=== PATIENT | male | born 1995 | race Caucasian/White ===

== ENCOUNTER 2017-01-21 10:22 | Emergency (ER) | payer SELFPAY ==
[~2017-01-21] VITALS: Ht 185.4 cm; Wt 72.6 kg
[~2017-01-21 10:22] MED LIST: CEPH500C PO; CLAR-19 PO; D-ME118S33 PO; HYDR1TAB PO; IBUP800T26 PO; LAMO150T3 PO; LISD50CA2 PO; LITH300C PO; METH4TAB PO; NAPR550T PO; PRD20T PO; RISP0.253 PO; SULF1TAB35 PO; TRAM50TA2 PO
--- NOTE | 2017-01-21 10:37 | ED Upper Extremity ---
General Stated Complaint: FINGER INJURY Source: patient Exam Limitations: no limitations History of Present Illness Time seen by provider: 10:35 Initial Comments To ER with left middle finger pain. There is swelling and bruising as well. This is a result of a kickback injury table saw about one hour prior to arrival. The board that he was pushing across the table saw had a knot in it which the blade caught throwing the board backwards and this hyperextended his finger. Onset: just prior to arrival Severity: moderate Pain/Injury Location: left 3rd finger Modifying Factors: Worse With Movement Allergies and Home Medications Allergies Coded Allergies: No Known Drug Allergies (Unverified , 11/25/15) Home Medications Sulfamethoxazole/Trimethoprim 1 Each Tablet, 1 EACH PO BID, #14 Ref 0 Prescribed by: FELICIA NUNEZ on 04/15/16 1724 Tramadol HCl 50 Mg Tablet, 50 MG PO Q4H PRN for PAIN, #14 Ref 0 Prescribed by: FELICIA NUNEZ on 04/15/16 1724 Constitutional: see HPI EENTM: see HPI Respiratory: no symptoms reported Cardiovascular: no symptoms reported Genitourinary: no symptoms reported Musculoskeletal: see HPI Skin: no symptoms reported Psychiatric/Neurological: No Symptoms Reported Past Hdptdqp-Pvzoem-Vstlpq Hx Patient Social History Former Smoker/When Quit: December 30, 2011 Recent Foreign Travel: No Contact w/Someone Who Travel: No Recent Hopitalizations: No Immunizations Up To Date Tetanus Booster (TDap): Less than 5yrs Date of Influenza Vaccine: Sep 25, 2015 Seasonal Allergies Seasonal Allergies: No Surgeries HX Surgeries: No Respiratory Hx Respiratory Disorders: No Cardiovascular Hx Cardiac Disorders: No Neurological Hx Neurological Disorders: No Reproductive System Hx Reproductive Disorders: No Sexually Transmitted Disease: No Genitourinary Hx Genitourinary Disorders: No Gastrointestinal Hx Gastrointestinal Disorders: No Musculoskeletal Hx Musculoskeletal Disorders: No Endocrine Hx Endocrine Disorders: No HEENT HX ENT Disorders: No Cancer Hx Cancer: No Psychosocial Hx Psychiatric Problems: Yes Behavioral Health Disorders: Anxiety, Violent Behavior, Depression Integumentary HX Skin/Integumentary Disorder: No Blood Transfusions Hx Blood Disorders: No Family Medical History Significant Family History: No Pertinent Family Hx Physical Exam Vital Signs Vital Sign - Last 12Hours 01/21/17 10:35 Temp 97.2 Pulse 106 Resp 18 B/P (MAP) 114/52 Pulse Ox 98 Capillary Refill : General Appearance: WD/WN, no apparent distress HEENT: PERRL/EOMI, normal ENT inspection Neck: non-tender, full range of motion Respiratory: no respiratory distress, no accessory muscle use Gastrointestinal: normal bowel sounds, non tender, soft Shoulder: normal inspection, non-tender Elbow/Forearm: normal inspection, non-tender, Left Wrist: Yes normal inspection, Yes non-tender Hand: Left, limited ROM (swelling and bruising and limited range of motion to the left middle finger) Neurologic/Psychiatric: alert, normal mood/affect, oriented x 3 Skin: normal color, warm/dry Progress/Results/Core Measures Results/Orders My Orders Orders - BLUE BAXTER APRN Finger(S) (01/21/17 10:35) Vital Signs/I&O Vital Sign - Last 12Hours 01/21/17 10:35 Temp 97.2 Pulse 106 Resp 18 B/P (MAP) 114/52 Pulse Ox 98 Departure Impression Impression: Primary Impression: Finger fracture Disposition: HOME, SELF-CARE Condition: Stable Departure-Patient Inst. Decision time for Depature: 10:51 Referrals: ROMÁN WARD DO (PCP/Family) Primary Care Physician COLTON SHINE MD,PORTILLO ALICEA,CHERYL ARRINGTON,RAVI BRONSON,KARLA GOLDSMITH,SENTHIL Keen MD Patient Instructions: Finger Fracture (DC) Add. Discharge Instructions: 1. Wear the splint at all times for the next 3 weeks. No bending the finger for the next 3 weeks. Follow-up with one of the orthopedic surgeons Scripts Hydrocodone/Acetaminophen ([place] 5-325 Tablet) 1 Each Tablet 1 EACH PO Q4H Y for PAIN-MODERATE, #20 TAB Prov: BLUE BAXTER APRN 01/21/17 Work/School Note: Work Release Form Date Seen in the Emergency Department: January 21, 2017 Return to Work: January 22, 2017 Other Restrictions Listed Below: No use of left middle finger for one month BLUE BAXTER APRN January 21, 2017 10:37
[2017-01-21] MEDS ORDERED: HYDR-757 PO (10:52)
[2017-01-21 10:58] VITALS: BP 114/52
--- NOTE | 2017-01-21 11:37 | Diagnostic Imaging Report ---
Three views of the left fingers. INDICATION: Third digit swelling and bruising. FINDINGS: There is a nondisplaced fracture along the ventral aspect of the base of the middle phalanx in the left middle finger. There is a possible extension into the articular surface without displacement or disruption of the articular surface, however. The joints demonstrate no subluxation or dislocation. IMPRESSION: Nondisplaced intra-articular fracture through the ventral aspect of the base of the middle phalanx of the left middle finger. Dictated by: Dictated on workstation # [id number]
== END 2017-01-21 10:58 | disposition home or self-care (01) ==
LOC: EDUNIT# 10:22 → ER 10:26
DX: S62.663A Nondisplaced fracture of distal phalanx of left middle finger, initial encounter for closed fracture (principal); W22.8XXA Striking against or struck by other objects, initial encounter; Y99.8 Other external cause status
CPT/HCPCS: 73140; 99282

== ENCOUNTER 2017-11-23 08:20 | Emergency (ER) | payer BC, OTHER ==
[~2017-11-23] VITALS: Ht 185.4 cm; Wt 74.8 kg
[~2017-11-23 08:20] MED LIST changes: +HYDR-757 PO
--- OUTSIDE RECORDS SUMMARY | 2017-11-23 08:43 | XMS REPORT | Clinical Summary ---
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 Name Role Phone PP Unavailable Allergies Not on File Current Medications Not on file Active Problems Not on file Social History Tobacco Use Types Packs/Day Years Used Date Never Assessed Sex Assigned at Date Recorded Not on file Plan of Treatment Health Maintenance Due Date Last Done Comments Varicella Vaccines (1 of 2007 2 - 2 Dose Adolescent Series) DTaP,Tdap,and Td Vaccines 2013 (1 - Tdap) Influenza Vaccine (Season 04/25/2018 Ended) HPV Vaccines Aged Out No longer eligible based on patient's age to complete this topic MenB Vaccine (Bexsero) Aged Out No longer eligible based on patient's age to complete this topic Results Not on filefrom Last 3 Months
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
--- NOTE | 2017-11-23 08:57 | Diagnostic Imaging Report ---
INDICATION: Chest tightness and wheezing. PA and lateral views of the chest are obtained with comparison made to study of 10/01/2015. FINDINGS: Heart size and pulmonary vascularity are within normal limits, and the lungs are clear, bilaterally. IMPRESSION: Unremarkable chest. Dictated by: Dictated on workstation # [id number]
[2017-11-23 09:03] LABS: BASOPHILS % (AUTO) 0 % (0-10); EOSINOPHILS # (AUTO) 0.1 10^3/uL (0.0-0.3); EOSINOPHILS % (AUTO) 1 % (0-10); HEMATOCRIT 41 % (40-54); HEMOGLOBIN 14.5 G/DL (13.3-17.7); LYMPHOCYTES # (AUTO) 1.8 X 10^3 (1.0-4.0); LYMPHOCYTES % (AUTO) 30 % (12-44); MEAN CORPUSCULAR HEMOGLOBIN 35 PG (25-34); MEAN CORPUSCULAR HGB CONC 36 G/DL (32-36); MEAN CORPUSCULAR VOLUME 98 FL (80-99); MEAN PLATELET VOLUME 11.3 FL (7.4-10.4); MONOCYTES # (AUTO) 0.5 X 10^3 (0.0-1.0); MONOCYTES % (AUTO) 9 % (0-12); NEUTROPHILS # (AUTO) 3.6 X 10^3 (1.8-7.8); NEUTROPHILS % (AUTO) 60 % (42-75); PLATELET COUNT 148 10^3/uL (130-400); RED BLOOD COUNT 4.19 10^6/uL (4.35-5.85); RED CELL DISTRIBUTION WIDTH 11.2 % (10.0-14.5)
--- NOTE | 2017-11-23 09:15 | ED Chest Pain ---
General Chief Complaint: Chest Pain Stated Complaint: CHEST PAIN Nursing Triage Note: ARRIVED VIA AMB TO ROOM. COMPLAINS OF RIGHT SIDED CHEST PAIN THAT IS GOING UP HIS THROAT. Nursing Sepsis Screen: No Definite Risk Source: patient Exam Limitations: no limitations History of Present Illness Date Seen by Provider: Nov 23, 2017 Time Seen by Provider: 08:33 Initial Comments This 22-year-old young man presents to the emergency room with 2 days of right upper chest pain. Pain is worse with inspiration and any exertion increases his respiratory rate. It is also worse with bending over. 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 He has not taken any medication for the pain. He denies tobacco use or alcohol. He does occasionally smoke marijuana. Pain is described as a dull aching at rest and sharp with strenuous exertion. Vital signs are within normal limits. He denies any lower extremity symptoms. Patient feels fatigued and short of breath with exertion. Allergies and Home Medications Allergies Coded Allergies: No Known Drug Allergies (Unverified , 11/25/15) Home Medications No Active Prescriptions or Reported Meds Patient Home Medication List Home Medication List Reviewed: Yes Review of Systems Constitutional: no symptoms reported EENTM: No Symptoms Reported Respiratory: See HPI Cardiovascular: See HPI Gastrointestinal: No Symptoms Reported Genitourinary: No Symptoms Reported Musculoskeletal: no symptoms reported Skin: no symptoms reported Psychiatric/Neurological: No Symptoms Reported Endocrine: No Symptoms Reported Past Kmaenjv-Mzvvhx-Qpjted Hx Patient Social History Alcohol Use: Occasionally Uses Recreational Drug Use: Yes Drug of Choice: marijuana Smoking Status: Never a Smoker Former Smoker, Quit: Nov 02, 2014 Recent Foreign Travel: No Contact w/Someone Who Travel: No Recent Infectious Disease Expo: No Recent Hopitalizations: No Immunizations Up To Date Tetanus Booster (TDap): Less than 5yrs Date of Influenza Vaccine: Sep 25, 2015 Seasonal Allergies Seasonal Allergies: No Surgeries History of Surgeries: No Respiratory History of Respiratory Disorde: No Cardiovascular History of Cardiac Disorders: No Neurological History of Neurological Disord: No Reproductive System Hx Reproductive Disorders: No Sexually Transmitted Disease: No Gastrointestinal History of Gastrointestinal Di: Yes Gastrointestinal Disorders: Gastroesophageal Reflux Musculoskeletal History of Musculoskeletal Dis: No Endocrine History of Endocrine Disorders: No HEENT History of HEENT Disorders: No Cancer History of Cancer: No Psychosocial History of Psychiatric Problem: Yes Behavioral Health Disorders: Anxiety, Violent Behavior, Depression Integumentary History of Skin or Integumenta: No Blood Transfusions History of Blood Disorders: No Family Medical History Significant Family History: No Pertinent Family Hx Physical Exam Vital Signs Vital Signs - First Documented 11/23/17 08:23 Temp 97.6 Pulse 79 Resp 18 B/P (MAP) 120/74 (89) Pulse Ox 98 Capillary Refill : Less Than 3 Seconds General Appearance: No Apparent Distress, WD/WN HEENT: PERRL/EOMI, Normal ENT Inspection Neck: Normal Inspection Respiratory: Chest Non Tender, Lungs Clear, Normal Breath Sounds, No Accessory Muscle Use, No Respiratory Distress Cardiovascular: Regular Rate, Rhythm, No Edema, No Murmur Extremity: Normal Capillary Refill, Normal Inspection, Non Tender, No Calf Tenderness, No Pedal Edema, Other (negative Alicia) Neurologic/Psychiatric: Alert, Oriented x3, No Motor/Sensory Deficits, Normal Mood/Affect, bar host II-XII Norm as Tested Skin: Normal Color, Warm/Dry Progress/Results/Core Measures Results/Orders Lab Results Laboratory Tests Test 11/23/17 08:56 Range/Units White Blood Count 6.0 4.3-11.0 10^3/uL Red Blood Count 4.19 L 4.35-5.85 10^6/uL Hemoglobin 14.5 13.3-17.7 G/DL Hematocrit 41 40-54 % Mean Corpuscular Volume 98 80-99 FL Mean Corpuscular Hemoglobin 35 H 25-34 PG Mean Corpuscular Hemoglobin Concent 36 32-36 G/DL Red Cell Distribution Width 11.2 10.0-14.5 % Platelet Count 148 130-400 10^3/uL Mean Platelet Volume 11.3 H 7.4-10.4 FL Neutrophils (%) (Auto) 60 42-75 % Lymphocytes (%) (Auto) 30 12-44 % Monocytes (%) (Auto) 9 0-12 % Eosinophils (%) (Auto) 1 0-10 % Basophils (%) (Auto) 0 0-10 % Neutrophils # (Auto) 3.6 1.8-7.8 X 10^3 Lymphocytes # (Auto) 1.8 1.0-4.0 X 10^3 Monocytes # (Auto) 0.5 0.0-1.0 X 10^3 Eosinophils # (Auto) 0.1 0.0-0.3 10^3/uL Basophils # (Auto) 0.0 0.0-0.1 10^3/uL Erythrocyte Sedimentation Rate 4 0-15 MM/HR D-Dimer < 0.27 0.00-0.49 UG/ML Sodium Level 139 135-145 MMOL/L Potassium Level 4.2 3.6-5.0 MMOL/L Chloride Level 104 98-107 MMOL/L Carbon Dioxide Level 25 21-32 MMOL/L Anion Gap 10 5-14 MMOL/L Blood Urea Nitrogen 16 7-18 MG/DL Creatinine 0.84 0.60-1.30 MG/DL Estimat Glomerular Filtration Rate > 60 BUN/Creatinine Ratio 19 Glucose Level 102 70-105 MG/DL Calcium Level 9.4 8.5-10.1 MG/DL Troponin I < 0.30 <0.30 NG/ML C-Reactive Protein High Sensitivity 0.17 0.00-0.50 MG/DL My Orders Orders - CEDRIC FOX MD Chest Pa/Lat (2 View) (11/23/17 08:41) Ekg Tracing (11/23/17 08:41) Basic Metabolic Panel (11/23/17 08:51) Cbc With Automated Diff (11/23/17 08:51) Hs C Reactive Protein (11/23/17 08:51) Fibrin Degradation Products (11/23/17 08:51) Troponin I (11/23/17 08:51) Erythrocyte Sedimentation Rate (11/23/17 08:51) Saline Lock/Iv-Start (11/23/17 08:51) Ketorolac Injection (Toradol Injection) (11/23/17 09:45) Vital Signs/I&O Vital Sign - Last 12Hours 11/23/17 08:23 Temp 97.6 Pulse 79 Resp 18 B/P (MAP) 120/74 (89) Pulse Ox 98 Blood Pressure Mean: 89 Progress Note : Progress Note Workup was unremarkable. Patient was given Toradol by IV route before dismissal. ECG Initial ECG Impression Date: Nov 23, 2017 Initial ECG Impression Time: 08:40 Initial ECG Rate: 65 Initial ECG Rhythm: Normal Sinus Initial ECG Intervals: Normal Initial ECG Impression: Normal Comment Normal sinus rhythm with subtle diffuse ST elevation, likely normal for age secondary to early repolarization. No abnormal intervals or axis deviation. Diagnostic Imaging Diagonstic Imaging: Xray Plain Films/CT/US/NM/MRI: chest Comments Chest x-ray viewed by me and report reviewed. See report below: NAME: CARMEN CLAIRE MED REC#: [id number] PT STATUS: REG ER : 1995 PHYSICIAN: CEDRIC FOX MD ADMIT DATE: 11/23/17/ER Draft Date of Exam:11/23/17 CHEST PA/LAT (2 VIEW) INDICATION: Chest tightness and wheezing. PA and lateral views of the chest are obtained with comparison made to study of 10/01/2015. FINDINGS: Heart size and pulmonary vascularity are within normal limits, and the lungs are clear, bilaterally. IMPRESSION: Unremarkable chest. Dictated on workstation # [id number] Dict: 11/23/17 0854 Trans: 11/23/17 0857 [id number] Interpreted by: CARLO THOMAS MD Departure Impression Impression: Primary Impression: Atypical chest pain Additional Impression: Dyspnea Qualified Codes: R06.00 - Dyspnea, unspecified Disposition: HOME, SELF-CARE Condition: Improved Departure-Patient Inst. Decision time for Depature: 09:40 Referrals: ROMÁN WARD DO (PCP/Family) Primary Care Physician Patient Instructions: Chest Pain That Is Not Caused by the Heart (DC) Add. Discharge Instructions: You may take ibuprofen up to 600 mg every 6 hours as needed for pain. Add Tylenol (acetaminophen) up to 1000 mg every 6 hours as needed for additional pain relief. Follow-up with your primary care provider on Friday if pain persists. Return to the emergency room if you have worsening symptoms. All discharge instructions reviewed with patient and/or family. Voiced understanding. Scripts No Active Prescriptions or Reported Meds CEDRIC FOX MD Nov 23, 2017 09:14
[2017-11-23 09:21] LABS: BUN/CREATININE RATIO 19; CALCIUM 9.4 MG/DL (8.5-10.1); CARBON DIOXIDE 25 MMOL/L (21-32); CHLORIDE 104 MMOL/L (98-107); CREATININE SERUM 0.84 MG/DL (0.60-1.30); GFR ESTIMATED > 60; GLUCOSE 102 MG/DL (70-105); POTASSIUM 4.2 MMOL/L (3.6-5.0); SODIUM 139 MMOL/L (135-145)
[2017-11-23 09:22] LABS: ERYTHROCYTE SEDIMENTATION RATE 4 MM/HR (0-15)
[2017-11-23] MEDS ORDERED: KETOROLAC 30 MG/ML VIAL IVP ONE (09:45)
[2017-11-23 09:53] VITALS: BP 108/63
== END 2017-11-23 09:53 | disposition home or self-care (01) ==
LOC: EDUNIT# 08:20 → ER 08:22
DX: R07.89 Other chest pain (principal); R06.00 Dyspnea, unspecified; K21.9 Gastro-esophageal reflux disease without esophagitis; F41.9 Anxiety disorder, unspecified; F32.9 Major depressive disorder, single episode, unspecified; F12.10 Cannabis abuse, uncomplicated; Z87.891 Personal history of nicotine dependence
CPT/HCPCS: 36415; 71046; 80048; 84484; 85025; 85379; 85652; 86141; 93005; 96374

== ENCOUNTER 2018-06-10 22:31 | Emergency (ER) | payer BC ==
[~2018-06-10] VITALS: Ht 185.4 cm; Wt 77.1 kg
[~2018-06-10 22:31] MED LIST changes: +HYDR-4226 PO; -HYDR-757 PO
[2018-06-10] MEDS ORDERED: RX-TRIMETH/SULFA. 160-800 MG (BACTRIM DS) TAB PPK#2 PO STA (23:36)
[2018-06-10] MEDS ORDERED: RX-NAPROXEN (NAPROSYN) 250 MG TAB PPK#4 PO STA (23:36)
[2018-06-10] MEDS ORDERED: MUPI1OIN6 TP (23:40)
[2018-06-10] MEDS ORDERED: NAPR-915 PO (23:40)
[2018-06-10] MEDS ORDERED: SULF1TAB35 PO (23:40)
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
[2018-06-11 00:05] VITALS: BP 108/71
== END 2018-06-11 00:08 | disposition home or self-care (01) ==
LOC: EDUNIT# 22:31 → ER 22:32
DX: L03.116 Cellulitis of left lower limb (principal); K21.9 Gastro-esophageal reflux disease without esophagitis; F41.9 Anxiety disorder, unspecified; F32.9 Major depressive disorder, single episode, unspecified; F12.10 Cannabis abuse, uncomplicated; F17.210 Nicotine dependence, cigarettes, uncomplicated

== ENCOUNTER → 2018-06-14 | Outpatient (CLI) | payer BC ==
[~2018-06-14] MED LIST changes: +MUPI1OIN6 TP; +NAPR-915 PO
== END ==
LOC: LABNPT 17:18
PROVIDERS: ATTEND Nurse Practitioner Family
DX: L02.416 Cutaneous abscess of left lower limb (principal)
CPT/HCPCS: 87070; 87077; 87186; 87205

== ENCOUNTER 2018-07-10 08:18 | Emergency (ER) | payer BC, OTHER ==
[~2018-07-10] VITALS: Ht 180.3 cm; Wt 77.1 kg
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
[2018-07-10] MEDS ORDERED: HYDR-4226 PO (11:10)
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
[2018-07-10] MEDS ORDERED: HYDROcodone/APAP 5 MG/325 MG (LORTAB) TAB ONE (11:32)
[2018-07-10 11:34] VITALS: BP 136/34
[2018-07-10] MEDS ORDERED: HYDROcodone/APAP 5 MG/325 MG (LORTAB) TAB PO ONE (11:45)
== END 2018-07-10 11:34 | disposition home or self-care (01) ==
LOC: EDUNIT# 08:18 → ER 08:20
DX: S02.2XXA Fracture of nasal bones, initial encounter for closed fracture (principal); S00.83XA Contusion of other part of head, initial encounter; K21.9 Gastro-esophageal reflux disease without esophagitis; F41.9 Anxiety disorder, unspecified; F32.9 Major depressive disorder, single episode, unspecified; R40.2142 Coma scale, eyes open, spontaneous, at arrival to emergency department; R40.2252 Coma scale, best verbal response, oriented, at arrival to emergency department; R40.2362 Coma scale, best motor response, obeys commands, at arrival to emergency department; Y04.8XXA Assault by other bodily force, initial encounter; Y92.59 Other trade areas as the place of occurrence of the external cause; Y99.0 Civilian activity done for income or pay
CPT/HCPCS: 70450; 70486; 72125

== ENCOUNTER 2019-05-16 13:37 | Emergency (ER) | payer MEDICAID, OTHER ==
[~2019-05-16] VITALS: Ht 185 cm; Wt 77.3 kg
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
[2019-05-16] MEDS ORDERED: IBUPROFEN 800 MG (MOTRIN) TAB PO STA (14:29)
[2019-05-16 14:45] VITALS: BP 106/72
== END 2019-05-16 14:43 | disposition home or self-care (01) ==
LOC: EDUNIT# 13:37 → ER 13:38
DX: S63.641A Sprain of metacarpophalangeal joint of right thumb, initial encounter (principal); S60.221A Contusion of right hand, initial encounter; F41.9 Anxiety disorder, unspecified; F32.9 Major depressive disorder, single episode, unspecified; F91.8 Other conduct disorders; K21.9 Gastro-esophageal reflux disease without esophagitis; Z87.891 Personal history of nicotine dependence; Y04.0XXA Assault by unarmed brawl or fight, initial encounter
CPT/HCPCS: 73130

== ENCOUNTER 2020-01-11 03:26 | Emergency (ER) | payer MEDICAID ==
[~2020-01-11] VITALS: Ht 185 cm; Wt 72.4 kg
[~2020-01-11 03:26] MED LIST changes: +TRM50T PO
[2020-01-11 03:35] VITALS: BP 124/87
[2020-01-11] MEDS ORDERED: predniSONE 20 MG TAB PO ONE (03:45)
--- NOTE | 2020-01-11 03:46 | ED Integumentary General ---
General Chief Complaint: Skin/Wound Problems Stated Complaint: POISON DENIA Source: patient Exam Limitations: no limitations History of Present Illness Date Seen by Provider: January 11, 2020 Time Seen by Provider: 03:35 Initial Comments Here with report of poison denia to his arms, neck and torso. Onset 2 days ago after lying in the grass working on his boat. Has linear lesions consistent with poison denia. Denies other concern. Timing/Duration: getting worse, other (2 days ago) Severity: moderate Location: torso, extremities Modifying Factors: improves with antihistamine Associated Symptoms: blisters, change in skin texture, edema, rash Allergies and Home Medications Allergies Coded Allergies: No Known Drug Allergies (Unverified , 11/25/15) Home Medications No Active Prescriptions or Reported Meds Patient Home Medication List Home Medication List Reviewed: Yes Review of Systems Review of Systems Constitutional: no symptoms reported EENTM: no symptoms reported Respiratory: no symptoms reported Cardiovascular: no symptoms reported Skin: see HPI, change in color, lesions, pruritus, rash Past Hdbcknu-Kfeswb-Izkunz Hx Past Med/Social Hx: Reviewed Nursing Past Med/Soc Hx Patient Social History Alcohol Use: Occasionally Uses Recreational Drug Use: Yes Drug of Choice: CANNIBUS Smoking Status: Current Everyday Smoker Type Used: Cigarettes Former Smoker, Quit: Nov 02, 2014 Recent Foreign Travel: No Contact w/Someone Who Travel: No Recent Hopitalizations: No Physical Abuse: No Sexual Abuse: No Mistreated: No Fear: No Immunizations Up To Date Tetanus Booster (TDap): Less than 5yrs Date of Influenza Vaccine: Sep 25, 2015 Seasonal Allergies Seasonal Allergies: No Past Medical History Surgeries: No Respiratory: No Cardiac: No Neurological: No Reproductive Disorders: No Sexually Transmitted Disease: No Genitourinary: No Gastrointestinal: Yes Gastroesophageal Reflux Musculoskeletal: No Endocrine: No HEENT: No Cancer: No Psychosocial: Yes Anxiety, Violent Behavior, Depression Integumentary: No Blood Disorders: No Family Medical History Reviewed Nursing Family Hx No Pertinent Family Hx Physical Exam Vital Signs Capillary Refill : General Appearance: WD/WN, no apparent distress Cardiovascular: regular rate, rhythm, no murmur Respiratory: lungs clear, normal breath sounds Neurologic/Psychiatric: alert, oriented x 3 Skin: warm/dry Skin Problem Location: upper extremities, torso Skin Problem Character: erythema, lesion, linear, vesicular Progress/Results/Core Measures Results/Orders My Orders Orders - KARUK,MOISE D MD Prednisone Tablet (Deltasone Tablet) (01/11/20 03:45) Progress Progress Note : Progress Note Seen and evaluated. Multiple areas of linear lesions to the trunk, bilateral upper extremities and right-sided neck. All consistent with poison denia contact dermatitis. Prednisone 40 mg by mouth. Discharged home with return precautions. Patient verbalize understanding instructions and agreement with plan. Departure Impression Primary Impression: Contact dermatitis due to poison denia Disposition: HOME, SELF-CARE Condition: Stable Departure-Patient Inst. Decision time for Depature: 03:44 Referrals: ROMÁN WARD DO (PCP/Family) Primary Care Physician Patient Instructions: Poison Denia Add. Discharge Instructions: All discharge instructions reviewed with patient and/or family. Voiced understanding. Take medications as directed. Follow-up with your doctor as needed. Return for worse pain, fever, foul-smelling drainage from lesions or other concerns as needed. Read discharge instructions related to poison denia care. Scripts Prednisone (Prednisone) 20 Mg Tab 40 MG PO DAILY, #12 TAB 0 Refills Prov: MOISE MEDINA MD 01/11/20 MOISE MEDINA MD January 11, 2020 03:46
[2020-01-11] MEDS ORDERED: PRD20T PO (03:47)
== END 2020-01-11 03:48 | disposition home or self-care (01) ==
LOC: EDUNIT# 03:26 → ER 03:30
DX: L23.7 Allergic contact dermatitis due to plants, except food (principal); F17.210 Nicotine dependence, cigarettes, uncomplicated
CPT/HCPCS: 99283

== ENCOUNTER 2020-04-06 02:44 | Emergency (ER) | payer MEDICAID ==
[~2020-04-06] VITALS: Ht 185 cm; Wt 72.5 kg
[2020-04-06] MEDS ORDERED: LACTATED RINGERS 1,000 ML IV ONE ×3 (03:08→05:31)
[2020-04-06] MEDS ORDERED: ONDANSETRON 4 MG/2 ML (SDV) Z0FRAN IVP ONE (03:15)
[2020-04-06 03:25] LABS: BASOPHILS % (AUTO) 0 % (0-10); EOSINOPHILS # (AUTO) 0.1 10^3/uL (0.0-0.3); EOSINOPHILS % (AUTO) 1 % (0-10); HEMATOCRIT 44 % (40-54); LYMPHOCYTES # (AUTO) 2.3 X 10^3 (1.0-4.0); LYMPHOCYTES % (AUTO) 25 % (12-44); MEAN CORPUSCULAR HEMOGLOBIN 34 PG (25-34); MEAN CORPUSCULAR HGB CONC 36 G/DL (32-36); MEAN CORPUSCULAR VOLUME 94 FL (80-99); MEAN PLATELET VOLUME 12.4 FL (7.4-10.4); MONOCYTES % (AUTO) 11 % (0-12); NEUTROPHILS # (AUTO) 5.7 X 10^3 (1.8-7.8); NEUTROPHILS % (AUTO) 63 % (42-75); PLATELET COUNT 158 10^3/uL (130-400); RED CELL DISTRIBUTION WIDTH 11.2 % (10.0-14.5); WHITE BLOOD COUNT 9.1 10^3/uL (4.3-11.0)
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
[2020-04-06 03:49] LABS: ALANINE AMINOTRANSFERASE 15 U/L (0-55); ALBUMIN 4.9 GM/DL (3.2-4.5); ALKALINE PHOSPHATASE 94 U/L (40-136); BILIRUBIN,TOTAL 1.6 MG/DL (0.1-1.0); BUN/CREATININE RATIO 15; CALCIUM 9.8 MG/DL (8.5-10.1); CARBON DIOXIDE 22 MMOL/L (21-32); CHLORIDE 104 MMOL/L (98-107); CREATININE SERUM 1.46 MG/DL (0.60-1.30); GFR ESTIMATED 58; GLUCOSE 110 MG/DL (70-105); MAGNESIUM 2.3 MG/DL (1.6-2.4); SODIUM 140 MMOL/L (135-145); TOTAL PROTEIN 8.2 GM/DL (6.4-8.2)
[2020-04-06] MEDS ORDERED: KCL 10 MEQ TAB (MICRO K) PO ONE (04:30)
--- NOTE | 2020-04-06 05:04 | NUR ---
patient concerned with his speech while at work, states trouble making words. Dr notifed of patient concerns.
--- NOTE | 2020-04-06 06:35 | NUR ---
patient yelling in room. Asked patient to keep it down. patient states "you are on facetime" Doctor and this RN instructed patient that facetime was not allowed. patient continued to yell. [place] [employer] contacted.
[2020-04-06 06:45] VITALS: BP 154/69
--- NOTE | 2020-04-06 06:45 | NUR ---
Patient yelling at RN because blood backed up into IV. RN talked with patient explaining reasoning. IV line flushed. RN spoke with patient about need for urine and junior. Patient getting upset again. RN showed patient junior, patient kept repeating that we were not helping him. [place] [employer] here. Spoke with patient about illegal to facetime in a hospital. This nurse instructed patient that he could refuse a junior catheter. RN explained the benifits of a junior, patient refused junior, patient upset with staff stating we are not fixing him. RN explained again pt refusing junior is hendering care. Patient refused to sign refusal of junior form. Edson Thayer [place] [employer] officer wittnessed refusal.
== END 2020-04-06 06:50 ==
LOC: EDUNIT# 02:44 → ER 02:48
DX: T67.5XXA Heat exhaustion, unspecified, initial encounter (principal); E86.0 Dehydration; E87.6 Hypokalemia; F19.90 Other psychoactive substance use, unspecified, uncomplicated; F91.8 Other conduct disorders; Z79.52 Long term (current) use of systemic steroids; Z87.891 Personal history of nicotine dependence; X30.XXXA Exposure to excessive natural heat, initial encounter
CPT/HCPCS: 80053; 83735; 85025; 99284; G0480; 36415; 80320

== ENCOUNTER 2020-07-07 18:44 | Emergency (ER) | payer MEDICAID ==
[~2020-07-07] VITALS: Ht 187.9 cm; Wt 70.3 kg
[2020-07-07] MEDS ORDERED: KETOROLAC 30 MG/ML VIAL IVP STA (18:54)
[2020-07-07] MEDS ORDERED: LACTATED RINGERS 1,000 ML IV ONE (18:54)
[2020-07-07 19:03] LABS: BILIRUBIN,URINE 2+ (NEGATIVE); CLARITY,URINE TURBID; COLOR,URINE BROWN; GLUCOSE, URINE (UA) NEGATIVE (NEGATIVE); KETONES,URINE TRACE (NEGATIVE); LEUKOCYTE ESTERASE ,URINE NEGATIVE (NEGATIVE); NITRITE,URINE POSITIVE (NEGATIVE); PH,URINE 6.5 (5-9); PROTEIN,URINE 3+ (NEGATIVE)
[2020-07-07 19:06] LABS: BASOPHILS % (AUTO) 0 % (0-10); EOSINOPHILS % (AUTO) 1 % (0-10); HEMATOCRIT 44 % (40-54); HEMOGLOBIN 14.5 g/dL (13.3-17.7); LYMPHOCYTES # (AUTO) 1.3 10^3/uL (1.0-4.0); LYMPHOCYTES % (AUTO) 27 % (12-44); MEAN CORPUSCULAR HEMOGLOBIN 33 pg (25-34); MEAN CORPUSCULAR HGB CONC 33 g/dL (32-36); MEAN CORPUSCULAR VOLUME 101 fL (80-99); MEAN PLATELET VOLUME 11.4 fL (9.0-12.2); MONOCYTES # (AUTO) 0.6 10^3/uL (0.0-1.0); MONOCYTES % (AUTO) 12 % (0-12); NEUTROPHILS # (AUTO) 2.9 10^3/uL (1.8-7.8); NEUTROPHILS % (AUTO) 60 % (42-75); PLATELET COUNT 157 10^3/uL (130-400); WHITE BLOOD COUNT 4.9 10^3/uL (4.3-11.0)
[2020-07-07 19:14] LABS: AMORPHOUS SEDIMENT,UR FEW AMOR URATES /LPF; BACTERIA,URINE FEW /HPF; RBC,URINE TNTC /HPF; SQUAMOUS EPITHELIAL CELL,UR RARE /HPF
[2020-07-07 19:16] LABS: AMPHETAMINE SCREEN, URINE NEGATIVE (NEGATIVE); BARBITURATE SCREEN URINE NEGATIVE (NEGATIVE); BENZODIAZEPINES SCREEN URINE NEGATIVE (NEGATIVE); CANNABINOID SCREEN, URINE POSITIVE (NEGATIVE); COCAINE SCREEN URINE NEGATIVE (NEGATIVE); METHADONE STAT NEGATIVE (NEGATIVE); METHAMPHETAMINE SCREEN URINE S NEGATIVE (NEGATIVE); OPIATE SCREEN URINE NEGATIVE (NEGATIVE); OXYCODONE STAT NEGATIVE (NEGATIVE); PROPOXYPHENE STAT NEGATIVE (NEGATIVE); TRICYCLIC ANTIDEPRESSANTS SCRE NEGATIVE (NEGATIVE)
[2020-07-07 19:22] LABS: PROTHROMBIN TIME PATIENT 13.9 SEC (12.2-14.7)
[2020-07-07 19:25] LABS: ALANINE AMINOTRANSFERASE 29 U/L (0-55); ALBUMIN 4.7 GM/DL (3.2-4.5); ALKALINE PHOSPHATASE 75 U/L (40-136); BILIRUBIN,TOTAL 1.6 MG/DL (0.1-1.0); BUN/CREATININE RATIO 12; CALCIUM 9.4 MG/DL (8.5-10.1); CARBON DIOXIDE 26 MMOL/L (21-32); CHLORIDE 103 MMOL/L (98-107); GFR ESTIMATED > 60; GLUCOSE 102 MG/DL (70-105); MAGNESIUM 2.1 MG/DL (1.6-2.4); SODIUM 140 MMOL/L (135-145); TOTAL PROTEIN 7.6 GM/DL (6.4-8.2)
--- NOTE | 2020-07-07 19:29 | Diagnostic Imaging Report ---
PROCEDURE: CT urinary tract, rule out kidney stone. TECHNIQUE: Multiple contiguous axial images were obtained through the abdomen and pelvis without the use of intravenous contrast. Auto Exposure Controls were utilized during the CT exam to meet ALARA standards for radiation dose reduction. INDICATION: Right flank pain. COMPARISON: 01/18/2012. FINDINGS: The heart is unremarkable. The included lung bases are clear. A 0.5 cm calculus is seen in the right UPJ with no significant right-sided hydronephrosis. Bilateral nonobstructing calculi also present. The largest in the superior pole of the right kidney measures 0.2 cm and the largest in the mid left kidney measures 0.3 cm. No significant perinephric fat stranding is seen. The urinary bladder is decompressed. No bladder calculi are visualized. The liver, spleen, pancreas, and adrenal glands have a normal appearance. There is no pathologically enlarged mesenteric or retroperitoneal adenopathy. The bowel loops are nondilated. The appendix is visualized in the right lower quadrant and has a normal appearance. There is no free fluid or free air. The osseous structures are age-appropriate. There is no free air, loculated collection, or adenopathy in the pelvis. IMPRESSION: 1. Calculus in the right UPJ measuring 0.5 cm. No significant hydronephrosis or perinephric fat stranding is seen. 2. Bilateral nonobstructing calculi. Dictated by: Dictated on workstation # [id number]
--- NOTE | 2020-07-07 19:33 | ED Back Pain ---
General Chief Complaint: Back Problems Stated Complaint: BACK PAIN Nursing Triage Note: PT AMB TO RM 6 WITH COMPLAINT OF RIGHT SIDED BACK PAIN THAT STARTED AT 1330. UNKNOWN CAUSE. Nursing Sepsis Screen: No Definite Risk Source of Information: Patient History of Present Illness Date Seen by Provider: Jul 07, 2020 Time Seen by Provider: 18:54 Initial Comments PT ARRIVES VIA POV FROM WORK AT [facility] [employer] C/O RIGHT FLANK PAIN SINCE 1330 TODAY, AND GETTING WORSE, HAD TO LEAVE WORK EARLY NO INJURY OR UNUSUAL ACTIVITY NO RADIATION OF PAIN C/O NAUSEA, NO VOMITING, WITH SEVERE PAIN NO ABDOMINAL PAIN NO DIARRHEA NO FEVER NO PROBLEMS URINATING, BUT NOTED ON ARRIVAL TO ER THAT URINE IS BROWN IN COL OR--HAD NOT BEEN THAT WAY EARLIER TOOL 2 IBUPROFEN AT 1530 AND 2 MORE AT 1730 WITHOUT RELIEF. NOTHING WORSENS OR IMPROVES PAIN NO HISTORY OF SIMILAR NO FEVER OR RECENT ILLNESS SEVERAL PEOPLE AT WORK HAVE HAD COVID, BUT NO ONE IN HIS DEPARTMENT HAS BEEN ILL OR HAD TO BE ON QUARANTINE. Other Comments PCP: NONE Allergies and Home Medications Allergies Coded Allergies: No Known Drug Allergies (Unverified , 11/25/15) Home Medications Hydrocodone/Acetaminophen 1 Each Tablet, 1 EACH PO Q4-6 HOURS PRN for PAIN Prescribed by: FAHAD WHITE on 07/07/201946 Ketorolac Tromethamine 10 Mg Tablet, 10 MG PO Q6H Prescribed by: FAHAD WHITE on 07/07/201946 Nitrofurantoin Monohyd/M-Cryst 100 Mg Capsule, 1 TAB PO BID Prescribed by: FAHAD WHITE on 07/07/201946 Ondansetron 4 Mg Tab.rapdis, 4 MG PO Q4H Prescribed by: FAHAD WHITE on 07/07/201946 Prednisone 20 Mg Tab, 40 MG PO DAILY Prescribed by: MOISE MEDINA on 01/11/20346 Tamsulosin HCl 0.4 Mg Cap, 0.4 MG PO DAILY Prescribed by: FAHAD WHITE on 07/07/201946 Patient Home Medication List Home Medication List Reviewed: Yes Review of Systems Constitutional: no symptoms reported EENTM: no symptoms reported Respiratory: no symptoms reported Cardiovascular: no symptoms reported Gastrointestinal: see HPI; No abdominal pain, No constipation, No diarrhea, No loss of appetite; nausea; No vomiting Genitourinary: see HPI Musculoskeletal: see HPI, back pain Skin: rash (CHRONIC RASH ON TRUNK--TREATED PERIODICALLY WITH ANTIFUNGAL MEDICATIONS, WHICH HELP, THEN IT COMES BACK WHEN HE STOPS USING IT. ) Psychiatric/Neurological: No Symptoms Reported Past Hfwvkdt-Iardfw-Pwbgtu Hx Past Med/Social Hx: Reviewed and Corrections made Patient Social History Alcohol Use: Occasionally Uses Number of Drinks Today: AA Alcohol Beverage of Choice: Beer Recreational Drug Use: Yes (THC DAILY) Drug of Choice: CANNIBUS DAILY Smoking Status: Current Everyday Smoker (<1/2 PPD) Type Used: Cigarettes 2nd Hand Smoke Exposure: Yes Recent Foreign Travel: No Contact w/Someone Who Travel: No Recent Infectious Disease Expo: No Recent Hopitalizations: No Immunizations Up To Date Tetanus Booster (TDap): Less than 5yrs Date of Influenza Vaccine: Sep 25, 2015 Seasonal Allergies Seasonal Allergies: No Past Medical History Surgeries: No Respiratory: No Cardiac: No Neurological: No Reproductive Disorders: No Sexually Transmitted Disease: No HIV/AIDS: No Genitourinary: No Gastrointestinal: Yes Gastroesophageal Reflux Musculoskeletal: No Endocrine: No HEENT: No Cancer: No Psychosocial: Yes Anxiety, Violent Behavior, Depression Integumentary: No Blood Disorders: No Family Medical History No Pertinent Family Hx Physical Exam Vital Signs Vital Signs - First Documented 07/07/20 18:47 Temp 36.4 Pulse 71 Resp 20 B/P (MAP) 120/74 (89) Pulse Ox 98 O2 Delivery Room Air Capillary Refill : Less Than 3 Seconds Height, Weight, BMI Height: 5'11.00" Weight: 170lbs. oz. 77.026353rv; 19.00 BMI Method:Estimated General Appearance: No Apparent Distress, WD/WN, Thin HEENT: PERRL/EOMI Neck: Full Range of Motion, Normal Inspection, Non Tender, Supple Cardiovascular: Regular Rate, Rhythm, No Edema, No JVD, No Murmur, Normal Peripheral Pulses Respiratory: Normal Breath Sounds, No Accessory Muscle Use, No Respiratory Distress Gastrointestinal: Normal Bowel Sounds, No Organomegaly, No Pulsatile Mass, Non Tender, Soft Back: No Vertebral Tenderness, CVA Tenderness (R) Extremity: Normal Inspection Neurologic/Psychiatric: Alert, Oriented x3, No Motor/Sensory Deficits, Normal Mood/Affect, trestleman II-XII Norm as Tested Skin: Normal Color, Warm/Dry, Rash (RASH ON TRUNK CONSISTENT WITH TINEA VERSICOLOR. ), Tattoos/Piercings (MULTIPLE TATTOOS) Progress/Results/Core Measures Results/Orders Lab Results Laboratory Tests Test 07/07/20 18:53 07/07/20 19:00 Range/Units Urine Color BROWN H Urine Clarity TURBID Urine pH 6.5 5-9 Urine Specific [place] >=1.030 1.016-1.022 Urine Protein 3+ H NEGATIVE Urine Glucose (UA) NEGATIVE NEGATIVE Urine Ketones TRACE H NEGATIVE Urine Nitrite POSITIVE H NEGATIVE Urine Bilirubin 2+ H NEGATIVE Urine Urobilinogen 1.0 < = 1.0 MG/DL Urine Leukocyte Esterase NEGATIVE NEGATIVE Urine RBC (Auto) 3+ H NEGATIVE Urine RBC TNTC H /HPF Urine WBC NONE /HPF Urine Squamous Epithelial Cells RARE /HPF Urine Crystals PRESENT H /LPF Urine Amorphous Sediment FEW ORTEGA URATES H /LPF Urine Bacteria FEW H /HPF Urine Casts NONE /LPF Urine Mucus NEGATIVE /LPF Urine Culture Indicated YES Urine Opiates Screen NEGATIVE NEGATIVE Urine Oxycodone Screen NEGATIVE NEGATIVE Urine Methadone Screen NEGATIVE NEGATIVE Urine Propoxyphene Screen NEGATIVE NEGATIVE Urine Barbiturates Screen NEGATIVE NEGATIVE Ur Tricyclic Antidepressants Screen NEGATIVE NEGATIVE Urine Phencyclidine Screen NEGATIVE NEGATIVE Urine Amphetamines Screen NEGATIVE NEGATIVE Urine Methamphetamines Screen NEGATIVE NEGATIVE Urine Benzodiazepines Screen NEGATIVE NEGATIVE Urine Cocaine Screen NEGATIVE NEGATIVE Urine Cannabinoids Screen POSITIVE H NEGATIVE White Blood Count 4.9 4.3-11.0 10^3/uL Red Blood Count 4.34 4.30-5.52 10^6/uL Hemoglobin 14.5 13.3-17.7 g/dL Hematocrit 44 40-54 % Mean Corpuscular Volume 101 H 80-99 fL Mean Corpuscular Hemoglobin 33 25-34 pg Mean Corpuscular Hemoglobin Concent 33 32-36 g/dL Red Cell Distribution Width 11.2 10.0-14.5 % Platelet Count 157 130-400 10^3/uL Mean Platelet Volume 11.4 9.0-12.2 fL Immature Granulocyte % (Auto) 0 % Neutrophils (%) (Auto) 60 42-75 % Lymphocytes (%) (Auto) 27 12-44 % Monocytes (%) (Auto) 12 0-12 % Eosinophils (%) (Auto) 1 0-10 % Basophils (%) (Auto) 0 0-10 % Neutrophils # (Auto) 2.9 1.8-7.8 10^3/uL Lymphocytes # (Auto) 1.3 1.0-4.0 10^3/uL Monocytes # (Auto) 0.6 0.0-1.0 10^3/uL Eosinophils # (Auto) 0.0 0.0-0.3 10^3/uL Basophils # (Auto) 0.0 0.0-0.1 10^3/uL Immature Granulocyte # (Auto) 0.0 0.0-0.1 10^3/uL Prothrombin Time 13.9 12.2-14.7 SEC INR Comment 1.0 0.8-1.4 Activated Partial Thromboplast Time 28 24-35 SEC Sodium Level 140 135-145 MMOL/L Potassium Level 4.0 3.6-5.0 MMOL/L Chloride Level 103 98-107 MMOL/L Carbon Dioxide Level 26 21-32 MMOL/L Anion Gap 11 5-14 MMOL/L Blood Urea Nitrogen 12 7-18 MG/DL Creatinine 1.00 0.60-1.30 MG/DL Estimat Glomerular Filtration Rate > 60 BUN/Creatinine Ratio 12 Glucose Level 102 70-105 MG/DL Calcium Level 9.4 8.5-10.1 MG/DL Corrected Calcium 8.5-10.1 MG/DL Magnesium Level 2.1 1.6-2.4 MG/DL Total Bilirubin 1.6 H 0.1-1.0 MG/DL Aspartate Amino Transf (AST/SGOT) 24 5-34 U/L Alanine Aminotransferase (ALT/SGPT) 29 0-55 U/L Alkaline Phosphatase 75 40-136 U/L Total Protein 7.6 6.4-8.2 GM/DL Albumin 4.7 H 3.2-4.5 GM/DL My Orders Orders - FAHAD WHITE DO Ed Iv/Invasive Line Start (07/07/20 18:54) Ct Abd/Pelvis Wo(Kidney Stone) (07/07/20 18:54) Abdomen/Kub 1view (07/07/20 18:54) Cbc With Automated Diff (07/07/20 18:54) Comprehensive Metabolic Panel (07/07/20 18:54) Drug Screen Stat (Urine) (07/07/20 18:54) Magnesium (07/07/20 18:54) Protime With Inr (07/07/20 18:54) Partial Thromboplastin Time (07/07/20 18:54) Ua Culture If Indicated (07/07/20 18:54) Ketorolac Injection (Toradol Injection) (07/07/20 18:54) Ed Iv/Invasive Line Start (07/07/20 18:54) Lactated Ringers (Lr 1000 Ml Iv Solution (07/07/20 18:54) Urine Culture (07/07/20 18:53) Tamsulosin Capsule (Flomax Capsule) (07/07/20 19:45) Ceftriaxone For Iv Use (Rocephin For I (07/07/20 19:45) Medications Given in ED Current Medications Medications Dose Ordered Sig/Glne Route Start Time Stop Time Status Last Admin Dose Admin Ceftriaxone Sodium 1000 mg/ Sterile Water 10 ml @ 200 mls/hr ONCE ONCE IV 07/07/20 19:45 07/07/20 19:47 DC 07/07/20 19:40 200 MLS/HR Lactated Ringer's 1,000 ml @ 0 mls/hr Q0M ONCE IV 07/07/20 18:54 07/07/20 18:56 DC 07/07/20 19:01 0 MLS/HR Vital Signs/I&O 07/07/20 18:47 Temp 36.4 Pulse 71 Resp 20 B/P (MAP) 120/74 (89) Pulse Ox 98 O2 Delivery Room Air Blood Pressure Mean: 89 Progress Progress Note : Progress Note GIVEN IV FLUIDS AND TORADOL WITH COMPLETE RELIEF OF PAIN UNEVENTFUL ER STAY Diagnostic Imaging Comments CT ABDOMEN/PELVIS--PER RADIOLOGIST REPORT AT 193 IMPRESSION: 1. Calculus in the right UPJ measuring 0.5 cm. No significant hydronephrosis or perinephric fat stranding is seen. 2. Bilateral nonobstructing calculi. KUB--PER RADIOLOGIST REPORT AT 1955 IMPRESSION: 1. Focal calcification in the area of the right renal pelvis, corresponding to the calculus in the right UPJ seen on the prior CT abdomen and pelvis. 2. No evidence of bowel obstruction or large collection of free intraperitoneal air. Reviewed: Reviewed by Me Departure Impression Primary Impression: Right ureteral calculus Additional Impression: UTI (urinary tract infection) Disposition: 01 HOME, SELF-CARE Condition: Improved Departure-Patient Inst. Referrals: CEDRIC ALVARADO MD Patient Instructions: How to Strain Your Urine, Kidney Stones (DC), Urinary Tract Infection, Adult (DC) Add. Discharge Instructions: STRAIN ALL URINE--RETURN ANY STONES TO UROLOGIST OFFICE LOTS OF CLEAR LIQUIDS--DRINK ENOUGH SO YOU ARE URINATING EVERY 2-3 HOURS WHILE AWAKE FOLLOW UP WITH DR. ALVARADO NEXT WEEK, CALL ON FRIDAY TO MAKE AN APPOINTMENT RETURN TO ER IF SYMPTOMS WORSEN, SUCH SEVERE PAIN THAT WILL NOT GO AWAY WITH PAIN MEDICATIONS OR FEVER, ETC. All discharge instructions reviewed with patient and/or family. Voiced understanding. Scripts Ketorolac Tromethamine (Ketorolac Tromethamine) 10 Mg Tablet 10 MG PO Q6H for Pain, #15 TAB Prov: FAHAD WHITE DO 07/07/20 Hydrocodone/Acetaminophen (Hydrocodone-Acetamin 5-325 mg) 1 Each Tablet 1 EACH PO Q4-6 HOURS PRN for PAIN, #20 TAB Prov: FAHAD WHITE DO 07/07/20 Ondansetron (Ondansetron Odt) 4 Mg Tab.rapdis 4 MG PO Q4H for Nausea/Vomiting, #10 TAB Prov: FAHAD WHITE DO 07/07/20 Nitrofurantoin Monohyd/M-Cryst (Macrobid 100 mg Capsule) 100 Mg Capsule 1 TAB PO BID, #20 CAP Prov: FAHAD WHITE DO 07/07/20 Tamsulosin HCl (Flomax) 0.4 Mg Cap 0.4 MG PO DAILY, #10 CAP Prov: FAHAD WHITE DO 07/07/20 FAHAD WHITE DO Jul 07, 2020 19:33
--- NOTE | 2020-07-07 19:35 | Diagnostic Imaging Report ---
REASON FOR EXAM: abdomen pain COMPARISON: CT abdomen and pelvis performed the same date. TECHNIQUE: frontal supine view of the abdomen FINDINGS: The bowel gas pattern is nondistended. No large collection of free intraperitoneal air is seen. Scattered small amounts of gas and fecal material are present in the colon. Focal calcification is seen in the area of the right renal pelvis. The osseous structures are age-appropriate. IMPRESSION: 1. Focal calcification in the area of the right renal pelvis, corresponding to the calculus in the right UPJ seen on the prior CT abdomen and pelvis. 2. No evidence of bowel obstruction or large collection of free intraperitoneal air. Dictated by: Dictated on workstation # [id number]
[2020-07-07] MEDS ORDERED: cefTRIAXone FOR IV USE 1,000 MG in WATER (STERILE) FOR INJECTION 10 ML IV ONE (19:45)
[2020-07-07] MEDS ORDERED: TAMSULOSIN 0.4 MG (FLOMAX) CAP PO SCH (19:45)
[2020-07-07] MEDS ORDERED: KETO10TA PO (19:47)
[2020-07-07] MEDS ORDERED: ONDA4TAB11 PO (19:47)
[2020-07-07] MEDS ORDERED: ACHD5005 PO (19:47)
[2020-07-07] MEDS ORDERED: TMSL.4C PO (19:47)
[2020-07-07] MEDS ORDERED: NITR-65 PO (19:47)
[2020-07-07 19:53] VITALS: BP 114/79
== END 2020-07-07 19:53 | disposition home or self-care (01) ==
LOC: EDUNIT# 18:44 → ER 18:45
DX: N20.1 Calculus of ureter (principal); N39.0 Urinary tract infection, site not specified; F17.210 Nicotine dependence, cigarettes, uncomplicated; Z79.52 Long term (current) use of systemic steroids
CPT/HCPCS: 36415; 74018; 74176; 80053; 80306; 81000; 83735; 85025; 85610; 85730; 87088

== ENCOUNTER → 2020-07-17 | Outpatient (CLI) | payer MEDICAID ==
[~2020-07-17] MED LIST changes: +ACHD5005 PO; +KETO10TA PO; +NITR-65 PO; +ONDA4TAB11 PO; +TMSL.4C PO
--- NOTE | 2020-07-17 15:18 | Diagnostic Imaging Report ---
INDICATION: Follow-up UPJ calculus. COMPARISON: 07/07/2020 FINDINGS: Single supine radiographic view of the abdomen was obtained. Unfortunately, the right renal shadow is obscured by colonic air and stool. There is however suggestion of retained 4 mm calculus. Pelvic phleboliths are again identified. Small bowel loops are nondistended. There is no large collection of free intraperitoneal air. Osseous structures show no acute abnormalities. IMPRESSION: 1. Right renal shadow is heavily obscured by colonic air and stool, but there is suggestion of retained 4 mm calculus. Dictated by: Dictated on workstation # [id number]
== END ==
LOC: RAD 13:35
PROVIDERS: ATTEND Urology
DX: N20.1 Calculus of ureter (principal)
CPT/HCPCS: 74018

== ENCOUNTER 2020-07-24 05:34 | Outpatient (RCR) | payer MEDICAID ==
[~2020-07-24] VITALS: Ht 185.5 cm; Wt 70.5 kg
== END 2020-07-24 10:44 | disposition home or self-care (01) ==
LOC: PREOP 05:34
PROVIDERS: ATTEND Urology
DX: Z01.812 Encounter for preprocedural laboratory examination (principal); N20.2 Calculus of kidney with calculus of ureter; Z20.828 Contact with and (suspected) exposure to other viral communicable diseases
CPT/HCPCS: 87635

== ENCOUNTER 2020-07-26 06:14 | Day surgery (SDC) | payer MEDICAID ==
[~2020-07-26] VITALS: Ht 185 cm; Wt 70.5 kg
[2020-07-26] VITALS (9 sets, daily range): BP systolic 87–109; BP diastolic 47–76
[2020-07-26] MEDS ORDERED: LACTATED RINGERS 1,000 ML IV PRN (06:33)
[2020-07-26] MEDS ORDERED: cefTRIAXone FOR IV USE 1,000 MG in WATER (STERILE) FOR INJECTION 10 ML IV ONE (06:45)
[2020-07-26] MEDS ORDERED: CATHETER FLUSH 10 ML SYR IV PRN (06:45)
[2020-07-26] MEDS ORDERED: KETOROLAC 30 MG/ML VIAL ONE (06:54)
[2020-07-26] MEDS ORDERED: LIDOCAINE PF 2% 5 ML (XYLOCAINE) VIAL ONE (06:54)
[2020-07-26] MEDS ORDERED: FUROSEMIDE 40 MG/4 ML INJ (LASIX) ONE (06:54)
[2020-07-26] MEDS ORDERED: proPOfol 200 MG/20 ML (DIPRIVAN) VIAL IV ONE (06:54)
[2020-07-26] MEDS ORDERED: MIDAZOLAM 2 MG/2 ML (VERSED) VIAL ONE (06:54)
[2020-07-26] MEDS ORDERED: ONDANSETRON 4 MG/2 ML (SDV) Z0FRAN ONE (06:54)
[2020-07-26] MEDS ORDERED: morphine INJ 10 MG/ML 1ML (SYR OR VIAL) ONE (06:54)
--- NOTE | 2020-07-26 07:12 | Diagnostic Imaging Report ---
INDICATION: ESWL A single view of the abdomen shows the bowel gas pattern to be within normal limits. There are calcified phleboliths in the pelvis. No urinary tract stone is evident on today's examination. The questionable 4 mm calculus seen on the right on 07/17/2020 study is not evident on today's examination. IMPRESSION: Normal abdomen. Dictated by: Dictated on workstation # [id number]
--- NOTE | 2020-07-26 07:12 | Progress Note-Pre Operative ---
Pre-Operative Progress Note H&P Reviewed The H&P was reviewed, patient examined and no changes noted. Date Seen by Provider: Jul 26, 2020 Time Seen by Provider: 07:11 Date H&P Reviewed: Jul 26, 2020 Time H&P Reviewed: 07:11 Pre-Operative Diagnosis: RT RENAL STONE CEDRIC ALVARADO MD Jul 26, 2020 07:12
--- NOTE | 2020-07-26 07:43 | Progress Note-Post Operative ---
Post-Operative Progess Note Surgeon (s)/Regional Extension Service Specialist (s) Surgeon CEDRIC ALVARADO MD Regional Extension Service Specialist: NONE Pre-Operative Diagnosis RT RENAL STONE Post-Operative Diagnosis SAME Procedure & Operative Findings Date of Procedure 07/26/20 Procedure Performed/Findings RT ESWL Anesthesia Type GENERAL Estimated Blood Loss Estimated blood loss (mL): NONE Specimens/Packing Specimens Removed NONE Packing: NONE CEDRIC ALVARADO MD Jul 26, 2020 07:43
--- NOTE | 2020-07-26 07:44 | Discharge Inst-Urology ---
Discharge Inst-Urology Reconcile Patient Problems Problems Reviewed?: Yes Final Diagnosis RT RENAL STONE Patient Instructions/Follow Up Plan/Assessment/Instructions Please make appointment to been seen in office in 2 weeks. KUB prior to it KUB on way home Post ESWL instructions Increase oral fluids for 48 hours and then as needed. Diet and Activity as tolerated. If questions or concerns contact your physician Or seek help at emergency department. CEDRIC ALVARADO MD Jul 26, 2020 07:44
[2020-07-26] MEDS ORDERED: PHENYLEPHRINE 100 MCG/ML 10 ML (ANESTHESIA) SYR ONE (07:58)
[2020-07-26] MEDS ORDERED: SEVOFLURANE (ULTANE) 15 ML INHAL SOLN ONE (08:00)
[2020-07-26] MEDS ORDERED: morphine INJ 10 MG/ML 1ML (SYR OR VIAL) IVP ONE (08:15)
[2020-07-26] MEDS ORDERED: MEPERIDINE (DEMEROL) INJ 50 MG/ML IVP ONE (08:15)
[2020-07-26] MEDS ORDERED: ONDANSETRON 4 MG/2 ML (SDV) Z0FRAN IVP PRN (08:15)
[2020-07-26] MEDS ORDERED: TMSL.4C PO (09:54)
[2020-07-26] MEDS ORDERED: TRM50T PO (09:54)
[2020-07-26] MEDS ORDERED: NITR-65 PO (09:54)
--- NOTE | 2020-07-26 10:00 | Anesthesia-General Post-Op ---
General Patient Condition Mental Status/LOC: Same as Preop Cardiovascular: Satisfactory Nausea/Vomiting: Absent Respiratory: Satisfactory Pain: Controlled Complications: Absent Post Op Complications Complications None Follow Up Care/Instructions Patient Instructions None needed. Anesthesia/Patient Condition Patient Condition Patient is doing well, no complaints, stable vital signs, no apparent adverse anesthesia problems. No complications reported per nursing. DENIS KLEIN CRNA Jul 26, 2020 10:00
--- NOTE | 2020-07-26 10:47 | Diagnostic Imaging Report ---
INDICATION: POST ESWL. TECHNIQUE: 2 supine view of the abdomen 10:22 AM CORRELATION STUDY: 07/26/2020 FINDINGS: Gas-filled loops of bowel are present with mild severity fecal retention. There is presence of grouped fragmented calcifications over the right renal silhouette. Likely phlebolith calcifications in the pelvis. No definitive calcifications along the expected course of either ureter. No definitive visualized calcification over left renal silhouette. IMPRESSION: 1. Small group fragmented calcifications over the right renal silhouette. Dictated by: Dictated on workstation # [id number]
--- NOTE | 2020-07-26 15:18 | OPERATIVE REPORT ---
DATE OF SERVICE: 07/26/2020 PREOPERATIVE DIAGNOSIS: Right renal stone. POSTOPERATIVE DIAGNOSIS: Right renal stone. OPERATION PERFORMED: Right ESWL. SURGEON: David Alvarado MD. ANESTHESIA: General. COMPLICATIONS: None. DESCRIPTION OF PROCEDURE: Under satisfactory general anesthesia and the patient in supine position on the ESWL table, the right renal stone was localized. Shocks were delivered at a kV of 6. A total of 2000 shocks completely fragmented the stone that was not visualized anymore. The patient received 40 mg of Lasix and 30 mg of Toradol IV at the end of the procedure. He tolerated the procedure and anesthesia well and was sent to the recovery room in stable condition. Job ID: [id number] DocumentID: [id number] Dictated Date: 07/26/2020 07:57:25 Psychology Associate Date: 07/26/2020 15:18:09 Dictated By: DAVID ALVARADO MD
[2020-07-27] MEDS ORDERED: OXYC1TAB87 PO (13:07)
== END 2020-07-26 10:45 | disposition home or self-care (01) ==
LOC: SDC 06:14
PROVIDERS: ATTEND Urology
DX: N20.0 Calculus of kidney (principal); F32.9 Major depressive disorder, single episode, unspecified; F41.9 Anxiety disorder, unspecified; K21.9 Gastro-esophageal reflux disease without esophagitis; Z79.899 Other long term (current) drug therapy; Z88.5 Allergy status to narcotic agent
CPT/HCPCS: 74018; 87081; 93005

== ENCOUNTER 2020-07-27 10:50 | Emergency (ER) | payer MEDICAID ==
[~2020-07-27] VITALS: Ht 185.4 cm; Wt 72.7 kg
[2020-07-27] MEDS ORDERED: morphine INJ 10 MG/ML 1ML (SYR OR VIAL) IVP STA (11:16)
[2020-07-27] MEDS ORDERED: KETOROLAC 30 MG/ML VIAL ONE (11:19)
[2020-07-27] MEDS ORDERED: KETOROLAC 15 MG/ML VIAL IVP ONE (11:30)
[2020-07-27] MEDS ORDERED: NS IV 1000 ML 1,000 ML IV SCH ×3 (11:30→12:00)
--- NOTE | 2020-07-27 11:37 | NUR ---
PLACED ON 2 L NC AFTER PAIN MEDS SA02 AT 89% 1138 SA02 100% WITH 2 L NC
--- NOTE | 2020-07-27 11:49 | ED General ---
General Chief Complaint: General Problems/Pain Stated Complaint: FLANK PAIN Nursing Triage Note: AMB TO ED PER EMS HAD KIDNEY STONE BLASTED YESTERDAY BY DR ALVARADO TODAY ONSET OF HAVING PAIN MEDS GIVEN BY DR ALVARADO ARE NOT HELPING. SCREAMING AND YELLING ON ADMIT.WANTNG PAIN MEDS. ADMITS TO SMOKING POT LAST NIGHT Nursing Sepsis Screen: No Definite Risk Source of Information: Patient Exam Limitations: No Limitations History of Present Illness Date Seen by Provider: Jul 27, 2020 Time Seen by Provider: 11:49 Initial Comments To ER with right lower/suprapubic pain that radiates into the testicles. He had ESWL for a right sided ureteral stone yesterday. Came in by EMS screaming in pain, Toradol and morphine given. He was sent home yesterday with Ultra for pain control. Timing/Duration: 1-2 Days Severity: Moderate Associated Systoms: Denies Symptoms Allergies and Home Medications Allergies Coded Allergies: fentanyl (Verified Allergy, Unknown, LIPS SWELLED, 07/26/20) Home Medications Nitrofurantoin Monohyd/M-Cryst 100 Mg Capsule, 1 TAB PO BID WITH MEALS Prescribed by: SANTANA ONEAL on 07/26/20 0954 Tamsulosin HCl 0.4 Mg Cap, 0.4 MG PO DAILY Prescribed by: SANTANA ONEAL on 07/26/20 0954 Tramadol HCl 50 Mg Tablet, 50 MG PO Q4H PRN for PAIN-MODERATE (5-7) Prescribed by: SANTANA ONEAL on 07/26/20 0954 Patient Home Medication List Home Medication List Reviewed: Yes Review of Systems Review of Systems Constitutional: see HPI EENTM: see HPI Respiratory: no symptoms reported Cardiovascular: no symptoms reported Genitourinary: no symptoms reported Musculoskeletal: no symptoms reported Skin: no symptoms reported Psychiatric/Neurological: No Symptoms Reported Hematologic/Lymphatic: No Symptoms Reported Immunological/Allergic: no symptoms reported Past Muknitx-Uvshqq-Seqoae Hx Patient Social History Alcohol Use: Occasionally Uses Number of Drinks Today: AA Alcohol Beverage of Choice: Beer Recreational Drug Use: No (SMOKES POT AND DRINKS ETOH) Drug of Choice: CANNIBUS Type Used: Cigarettes Former Smoker, Quit: Nov 02, 2014 2nd Hand Smoke Exposure: Yes Recent Foreign Travel: No Contact w/Someone Who Travel: No Recent Infectious Disease Expo: No Recent Hopitalizations: No Immunizations Up To Date Tetanus Booster (TDap): Less than 5yrs Date of Influenza Vaccine: May 25, 2020 Seasonal Allergies Seasonal Allergies: Yes Past Medical History Surgeries: No Respiratory: No Currently Using CPAP: No Currently Using BIPAP: No Cardiac: No Neurological: No Reproductive Disorders: No Sexually Transmitted Disease: No HIV/AIDS: No Genitourinary: Yes Kidney Stones Gastrointestinal: Yes Gastroesophageal Reflux Musculoskeletal: No Endocrine: No HEENT: No Cancer: No Psychosocial: Yes Anxiety, Violent Behavior, Depression Integumentary: No Blood Disorders: No Family Medical History No Pertinent Family Hx Physical Exam Vital Signs Vital Signs - First Documented 07/27/20 10:50 Temp 35.0 Pulse 85 Resp 18 B/P (MAP) 137/100 (112) O2 Delivery Room Air Capillary Refill : Less Than 3 Seconds Height, Weight, BMI Height: 5'11.00" Weight: 170lbs. oz. 77.855911ml; 21.00 BMI Method:Estimated General Appearance: No Apparent Distress, WD/WN Eyes: Bilateral Eye Normal Inspection, Bilateral Eye PERRL, Bilateral Eye EOMI Neck: Full Range of Motion, Normal Inspection Respiratory: Lungs Clear, Normal Breath Sounds, No Accessory Muscle Use, No Respiratory Distress Cardiovascular: Regular Rate, Rhythm, Normal Peripheral Pulses Gastrointestinal: Normal Bowel Sounds, Non Tender, Soft Neurologic/Psychiatric: Alert, Oriented x3 Skin: Normal Color, Warm/Dry Comments 1200-resting comfortably, rates pain 3 out of 10 after Toradol and morphine. Progress/Results/Core Measures Suspected Sepsis Recent Fever Within 48 Hours: No Infection Criteria Present: None New/Unexplained Altered Menta: No Sepsis Screen: No Definite Risk SIRS Temperature: Pulse: 85 Respiratory Rate: 18 Laboratory Tests 07/27/20 10:58: White Blood Count 7.9 Blood Pressure 137 /100 Mean: 112 Laboratory Tests 07/27/20 10:58: Creatinine 1.01, Platelet Count 154 Results/Orders Lab Results Laboratory Tests Test 07/27/20 10:58 07/27/20 12:49 Range/Units White Blood Count 7.9 4.3-11.0 10^3/uL Red Blood Count 4.17 L 4.30-5.52 10^6/uL Hemoglobin 14.2 13.3-17.7 g/dL Hematocrit 42 40-54 % Mean Corpuscular Volume 100 H 80-99 fL Mean Corpuscular Hemoglobin 34 25-34 pg Mean Corpuscular Hemoglobin Concent 34 32-36 g/dL Red Cell Distribution Width 11.0 10.0-14.5 % Platelet Count 154 130-400 10^3/uL Mean Platelet Volume 12.4 H 9.0-12.2 fL Immature Granulocyte % (Auto) 0 % Neutrophils (%) (Auto) 61 42-75 % Lymphocytes (%) (Auto) 30 12-44 % Monocytes (%) (Auto) 9 0-12 % Eosinophils (%) (Auto) 0 0-10 % Basophils (%) (Auto) 0 0-10 % Neutrophils # (Auto) 4.9 1.8-7.8 10^3/uL Lymphocytes # (Auto) 2.4 1.0-4.0 10^3/uL Monocytes # (Auto) 0.7 0.0-1.0 10^3/uL Eosinophils # (Auto) 0.0 0.0-0.3 10^3/uL Basophils # (Auto) 0.0 0.0-0.1 10^3/uL Immature Granulocyte # (Auto) 0.0 0.0-0.1 10^3/uL Sodium Level 138 135-145 MMOL/L Potassium Level 3.3 L 3.6-5.0 MMOL/L Chloride Level 102 98-107 MMOL/L Carbon Dioxide Level 21 21-32 MMOL/L Anion Gap 15 H 5-14 MMOL/L Blood Urea Nitrogen 19 H 7-18 MG/DL Creatinine 1.01 0.60-1.30 MG/DL Estimat Glomerular Filtration Rate > 60 BUN/Creatinine Ratio 19 Glucose Level 138 H 70-105 MG/DL Calcium Level 9.1 8.5-10.1 MG/DL Urine Color YELLOW Urine Clarity CLEAR Urine pH 6.5 5-9 Urine Specific [place] 1.025 H 1.016-1.022 Urine Protein 2+ H NEGATIVE Urine Glucose (UA) NEGATIVE NEGATIVE Urine Ketones NEGATIVE NEGATIVE Urine Nitrite NEGATIVE NEGATIVE Urine Bilirubin NEGATIVE NEGATIVE Urine Urobilinogen 0.2 < = 1.0 MG/DL Urine Leukocyte Esterase TRACE H NEGATIVE Urine RBC (Auto) 3+ H NEGATIVE Urine RBC 50-100 H /HPF Urine WBC 2-5 /HPF Urine Squamous Epithelial Cells RARE /HPF Urine Crystals NONE /LPF Urine Bacteria NEGATIVE /HPF Urine Casts NONE /LPF Urine Mucus NEGATIVE /LPF Urine Culture Indicated NO My Orders Orders - BLUE BAXTER APRN Ns Iv 1000 Ml (Sodium Chloride 0.9%) (07/27/20 12:00) Oxycodone/Apap 5/325mg Tablet (Percocet (07/27/20 12:00) Ns Iv 1000 Ml (Sodium Chloride 0.9%) (07/27/20 12:00) Cbc With Automated Diff (07/27/20 11:53) Ua Culture If Indicated (07/27/20 11:53) Basic Metabolic Panel (07/27/20 11:53) Medications Given in ED Current Medications Medications Dose Ordered Sig/[place]len Route Start Time Stop Time Status Last Admin Dose Admin Ketorolac Tromethamine 15 mg ONCE ONCE IVP 07/27/20 11:30 07/27/20 11:31 DC 07/27/20 11:24 15 MG Oxycodone/ Acetaminophen 1 tab ONCE ONCE PO 07/27/20 12:00 07/27/20 12:01 DC 07/27/20 12:07 1 TAB Vital Signs/I&O 07/27/20 10:50 Temp 35.0 Pulse 85 Resp 18 B/P (MAP) 137/100 (112) O2 Delivery Room Air Capillary Refill : Less Than 3 Seconds Blood Pressure Mean: 112 Departure Impression Primary Impression: Right ureteral calculus Disposition: HOME, SELF-CARE Condition: Stable Departure-Patient Inst. Decision time for Depature: 12:56 Referrals: NO,LOCAL PHYSICIAN (PCP/Family) Primary Care Physician Patient Instructions: Kidney Stones (DC) Add. Discharge Instructions: Follow-upTake the antibiotics Take the pain medication as directed. Return to ER for any concerns. With Dr. Alvarado All discharge instructions reviewed with patient and/or family. Voiced understanding. BLUE BAXTER APRN Jul 27, 2020 11:49
[2020-07-27 11:58] LABS: BASOPHILS % (AUTO) 0 % (0-10); EOSINOPHILS % (AUTO) 0 % (0-10); HEMATOCRIT 42 % (40-54); HEMOGLOBIN 14.2 g/dL (13.3-17.7); LYMPHOCYTES # (AUTO) 2.4 10^3/uL (1.0-4.0); LYMPHOCYTES % (AUTO) 30 % (12-44); MEAN CORPUSCULAR HEMOGLOBIN 34 pg (25-34); MEAN CORPUSCULAR HGB CONC 34 g/dL (32-36); MEAN CORPUSCULAR VOLUME 100 fL (80-99); MEAN PLATELET VOLUME 12.4 fL (9.0-12.2); MONOCYTES # (AUTO) 0.7 10^3/uL (0.0-1.0); MONOCYTES % (AUTO) 9 % (0-12); NEUTROPHILS # (AUTO) 4.9 10^3/uL (1.8-7.8); NEUTROPHILS % (AUTO) 61 % (42-75); PLATELET COUNT 154 10^3/uL (130-400); WHITE BLOOD COUNT 7.9 10^3/uL (4.3-11.0)
[2020-07-27 12:00] LABS: CHLORIDE 102 MMOL/L (98-107); POTASSIUM 3.3 MMOL/L (3.6-5.0); SODIUM 138 MMOL/L (135-145)
[2020-07-27] MEDS ORDERED: oxyCODONE/APAP 5/325MG (PERCOCET 5) TABLET PO ONE (12:00)
[2020-07-27 12:02] LABS: CALCIUM 9.1 MG/DL (8.5-10.1); GLUCOSE 138 MG/DL (70-105)
[2020-07-27 12:03] LABS: CARBON DIOXIDE 21 MMOL/L (21-32)
[2020-07-27 12:06] LABS: CREATININE SERUM 1.01 MG/DL (0.60-1.30); GFR ESTIMATED > 60
[2020-07-27 12:07] LABS: BUN/CREATININE RATIO 19
[2020-07-27 12:54] LABS: BILIRUBIN,URINE NEGATIVE (NEGATIVE); CLARITY,URINE CLEAR; COLOR,URINE YELLOW; GLUCOSE, URINE (UA) NEGATIVE (NEGATIVE); KETONES,URINE NEGATIVE (NEGATIVE); LEUKOCYTE ESTERASE ,URINE TRACE (NEGATIVE); NITRITE,URINE NEGATIVE (NEGATIVE); PH,URINE 6.5 (5-9); PROTEIN,URINE 2+ (NEGATIVE)
[2020-07-27 13:02] LABS: BACTERIA,URINE NEGATIVE /HPF; RBC,URINE 50-100 /HPF; SQUAMOUS EPITHELIAL CELL,UR RARE /HPF
[2020-07-27] MEDS ORDERED: OXYC1TAB87 PO (13:07)
[2020-07-27 13:17] VITALS: BP 112/53
== END 2020-07-27 13:16 | disposition home or self-care (01) ==
LOC: EDUNIT# 10:50 → ER 10:53
DX: N20.1 Calculus of ureter (principal); Z87.891 Personal history of nicotine dependence; Z88.8 Allergy status to other drugs, medicaments and biological substances
CPT/HCPCS: 36415; 80048; 81000; 85025

== ENCOUNTER → 2020-08-09 | Outpatient (CLI) | payer MEDICAID ==
[~2020-08-09] MED LIST changes: +OXYC1TAB87 PO
--- NOTE | 2020-08-09 16:52 | Diagnostic Imaging Report ---
INDICATION: Renal calculus KUB 2:49 PM There is a moderate amount of stool in the colon. There are some phleboliths in the pelvis. There is a 6 mL calculus projecting over the right renal pelvis and a 1.5 mm calculus projecting over the mid left kidney. IMPRESSION: Bilateral nephrolithiasis. Dictated by: Dictated on workstation # [id number]
== END ==
LOC: RAD 14:15
PROVIDERS: ATTEND Urology
DX: N20.0 Calculus of kidney (principal)
CPT/HCPCS: 74018

== ENCOUNTER 2020-12-17 23:25 | Emergency (ER) | payer MEDICAID ==
[~2020-12-17] VITALS: Ht 185 cm; Wt 79.0 kg
[2020-12-18] MEDS ORDERED: AZITHROMYCIN 250 MG TAB (ZITHROMAX) PO STA (01:13)
--- NOTE | 2020-12-18 01:17 | ED General ---
General Chief Complaint: Cough/Cold/Flu Symptoms Stated Complaint: COUGH,SINUS ISSUES,MUCUS, CHEST PAIN Source of Information: Patient Exam Limitations: No Limitations History of Present Illness Date Seen by Provider: Dec 18, 2020 Time Seen by Provider: 00:00 Initial Comments This 25-year-old young man presents to the emergency room with complaints of flulike symptoms including sinus drainage, mucus production, cough, and right lower chest pain with breathing. He reports his significant other was recently diagnosed with pneumonia. He denies any flu or Covid exposures. He does smoke. He is afebrile. He has had symptoms for about a week. Allergies and Home Medications Allergies Coded Allergies: fentanyl (Verified Allergy, Unknown, LIPS SWELLED, 07/26/20) Home Medications Azithromycin 250 Mg Tablet, 250 MG PO DAILY Prescribed by: CEDRIC HODGSON on 12/18/20 0443 Nitrofurantoin Monohyd/M-Cryst 100 Mg Capsule, 1 TAB PO BID WITH MEALS Prescribed by: SANTANA ONEAL on 07/26/20 0954 Oxycodone HCl/Acetaminophen 1 Each Tablet, 1 TAB PO Q4H Prescribed by: BLUE BAXTER on 07/27/20 1308 Tamsulosin HCl 0.4 Mg Cap, 0.4 MG PO DAILY Prescribed by: SANTANA ONEAL on 07/26/20 0954 Tramadol HCl 50 Mg Tablet, 50 MG PO Q4H PRN for PAIN-MODERATE (5-7) Prescribed by: SANTANA ONEAL on 07/26/20 0954 Patient Home Medication List Home Medication List Reviewed: Yes Review of Systems Review of Systems Constitutional: no symptoms reported EENTM: see HPI Respiratory: see HPI Cardiovascular: no symptoms reported Gastrointestinal: no symptoms reported Genitourinary: no symptoms reported Musculoskeletal: no symptoms reported Skin: no symptoms reported Psychiatric/Neurological: No Symptoms Reported Hematologic/Lymphatic: No Symptoms Reported Immunological/Allergic: no symptoms reported Past Nabgzls-Eoftkb-Baagtg Hx Patient Social History Alcohol Beverage of Choice: Beer Drug of Choice: CANNIBUS Type Used: Cigarettes Former Smoker, Quit: Nov 02, 2014 2nd Hand Smoke Exposure: Yes Recent Hopitalizations: No Immunizations Up To Date Tetanus Booster (TDap): Less than 5yrs Date of Influenza Vaccine: May 25, 2020 Seasonal Allergies Seasonal Allergies: Yes Past Medical History Surgeries: No Respiratory: No Currently Using CPAP: No Currently Using BIPAP: No Cardiac: No Neurological: No Reproductive Disorders: No Sexually Transmitted Disease: No HIV/AIDS: No Genitourinary: Yes Kidney Stones Gastrointestinal: Yes Gastroesophageal Reflux Musculoskeletal: No Endocrine: No HEENT: No Cancer: No Psychosocial: Yes Anxiety, Violent Behavior, Depression Integumentary: No Blood Disorders: No Family Medical History No Pertinent Family Hx Physical Exam Vital Signs Vital Signs - First Documented 12/18/20 01:24 Pulse Ox 98 Capillary Refill : Height, Weight, BMI Height: 5'11.00" Weight: 170lbs. oz. 77.948894ky; 21.00 BMI Method:Estimated General Appearance: No Apparent Distress, WD/WN HEENT: PERRL/EOMI, Normal ENT Inspection, Pharynx Normal Neck: Normal Inspection Respiratory: Lungs Clear, Normal Breath Sounds, No Accessory Muscle Use, No Respiratory Distress, Other (Splinting respirations noted) Cardiovascular: Regular Rate, Rhythm, No Edema, No Murmur Gastrointestinal: Non Tender, Soft Extremity: Normal Inspection, No Pedal Edema Neurologic/Psychiatric: Alert, Oriented x3, No Motor/Sensory Deficits, Normal Mood/Affect Skin: Normal Color, Warm/Dry Progress/Results/Core Measures Suspected Sepsis SIRS Temperature: Pulse: Respiratory Rate: Blood Pressure / Mean: Results/Orders Lab Results Laboratory Tests Test 12/18/20 00:05 Range/Units Coronavirus 2019 ([facility]NA) Not Detected Not Detecte Micro Results Microbiology 12/18/20 Influenza Types A,B Antigen ([facility]) - Final, Complete My Orders Orders - CEDRIC FOX MD Influenza A And B Antigens (12/18/20 00:00) Chest 1 View, Ap/Pa Only (12/18/20 00:00) Covid 19 Inhouse Test (12/18/20 00:00) Azithromycin Tablet (Zithromax Tablet) (12/18/20 01:13) Vital Signs/I&O 12/17/20 12/17/20 12/18/20 23:45 23:45 01:24 Temp 36.9 Pulse 77 87 Resp 18 14 B/P (MAP) 122/73 (89) 114/74 Pulse Ox 98 O2 Delivery Room Air Room Air Room Air Capillary Refill : Progress Note : Progress Note Chest x-ray was obtained. There was questionable subtle infiltrate in the right lower lung when compared with prior. Patient possibly has a subtle early pneumonia. Influenza and Covid screening were negative. A azithromycin was provided. Patient was advised to quit smoking. Diagnostic Imaging Diagonstic Imaging: Xray Plain Films/CT/US/NM/MRI: chest Comments Chest x-ray viewed by me and compared with prior. Report not available. There was possibly some very subtle hazy infiltrate in the right lower lung. Departure Impression Primary Impression: Cough Additional Impressions: Pleuritic chest pain Right lower lobe pulmonary infiltrate Disposition: HOME, SELF-CARE Condition: Stable Departure-Patient Inst. Decision time for Depature: 01:16 Referrals: NO,LOCAL PHYSICIAN (PCP/Family) Primary Care Physician Patient Instructions: Pneumonia, Adult ED Add. Discharge Instructions: Complete your antibiotics as prescribed. Work toward quitting smoking as fast as possible. Call with questions or concerns. Return to care if you have worsening symptoms. All discharge instructions reviewed with patient and/or family. Voiced understanding. Scripts Azithromycin (Azithromycin) 250 Mg Tablet 250 MG PO DAILY, #4 TAB 0 Refills Prov: CEDRIC FOX MD 12/18/20 Work/School Note: Work Release Form Date Seen in the Emergency Department: Dec 18, 2020 Return to Work: Dec 19, 2020 Restrictions: Return-No Fever (24hrs) CEDRIC FOX MD Dec 18, 2020 01:17
[2020-12-18 01:24] VITALS: BP 114/74
[2020-12-18] MEDS ORDERED: AZIT250T12 PO (04:43)
--- NOTE | 2020-12-18 06:28 | Diagnostic Imaging Report ---
HISTORY: Shortness of air, cough and congestion. Covid-19 precautions COMPARISON: 11/23/2017 TECHNIQUE: Frontal view of the chest FINDINGS: Lung volumes are mildly large. No focal consolidation is seen. There is no pleural effusion or pneumothorax. The cardiac silhouette is normal in size. IMPRESSION: 1. No acute pulmonary abnormality. Dictated by: Dictated on workstation # [id number]
== END 2020-12-18 01:25 | disposition home or self-care (01) ==
LOC: EDUNIT# 23:25 → ER 23:28
DX: R05 Cough (principal); R07.81 Pleurodynia; J18.1 Lobar pneumonia, unspecified organism; Z20.822 Contact with and (suspected) exposure to COVID-19; Z87.891 Personal history of nicotine dependence; Z88.8 Allergy status to other drugs, medicaments and biological substances
CPT/HCPCS: 71045; 87804; 99283; U0002; 87635

== ENCOUNTER 2021-02-06 19:49 | Emergency (ER) | payer MEDICAID ==
[~2021-02-06] VITALS: Ht 185.4 cm; Wt 74.8 kg
[~2021-02-06 19:49] MED LIST changes: +AZIT250T12 PO
--- NOTE | 2021-02-06 20:13 | ED General ---
General Chief Complaint: Exposure Stated Complaint: HEADACHE, FATIGUE, FEVER Source of Information: Patient Exam Limitations: No Limitations History of Present Illness Date Seen by Provider: Feb 06, 2021 Time Seen by Provider: 19:51 Initial Comments Patient presents ER by private conveyance from home with chief complaint that for the past 12 hours he has had malaise fatigue body aches joint aches and chills. No known tick or insect bites. He has several of his kids in his home are all sick with strep. He took some ibuprofen 600 mg 1 time today and tramadol and did not help his body aches. He is having nausea without vomiting. No objective fevers. Allergies and Home Medications Allergies Coded Allergies: fentanyl (Verified Allergy, Unknown, LIPS SWELLED, 07/26/20) Home Medications Azithromycin 250 Mg Tablet, 250 MG PO DAILY Prescribed by: CEDRIC HODGSON on 12/18/20 0443 Nitrofurantoin Monohyd/M-Cryst 100 Mg Capsule, 1 TAB PO BID WITH MEALS Prescribed by: SANTANA ONEAL on 07/26/20 0954 Oxycodone HCl/Acetaminophen 1 Each Tablet, 1 TAB PO Q4H Prescribed by: BLUE BAXTER on 07/27/20 1308 Tamsulosin HCl 0.4 Mg Cap, 0.4 MG PO DAILY Prescribed by: SANTANA ONEAL on 07/26/20 0954 Tramadol HCl 50 Mg Tablet, 50 MG PO Q4H PRN for PAIN-MODERATE (5-7) Prescribed by: SANTANA ONEAL on 07/26/20 0954 Patient Home Medication List Home Medication List Reviewed: Yes Review of Systems Review of Systems Constitutional: chills, fever (Subjective), malaise, weakness EENTM: No ear discharge, No ear pain Respiratory: No cough, No short of breath Cardiovascular: No chest pain, No edema Gastrointestinal: No abdominal pain, No constipation; diarrhea, nausea; No vomiting Genitourinary: No discharge, No dysuria Musculoskeletal: No back pain, No joint pain Psychiatric/Neurological: Denies Anxiety, Denies Depressed All Other Systems Reviewed Negative Unless Noted: Yes Past Zngitvs-Zqbbfz-Wusrta Hx Patient Social History Alcohol Use: Occasionally Uses Alcohol Beverage of Choice: Beer Drug of Choice: MARIJUANA Smoking Status: Former Smoker Type Used: Cigarettes Former Smoker, Quit: Nov 02, 2014 2nd Hand Smoke Exposure: Yes Recent Hopitalizations: No Immunizations Up To Date Tetanus Booster (TDap): Less than 5yrs Date of Influenza Vaccine: May 25, 2020 Seasonal Allergies Seasonal Allergies: Yes Past Medical History Surgeries: Yes (LITHOTRIPSY) Respiratory: No Currently Using CPAP: No Currently Using BIPAP: No Cardiac: No Neurological: No Reproductive Disorders: No Sexually Transmitted Disease: No HIV/AIDS: No Genitourinary: Yes Kidney Stones Gastrointestinal: Yes Gastroesophageal Reflux Musculoskeletal: No Endocrine: No HEENT: No Cancer: No Psychosocial: Yes Anxiety, Violent Behavior, Depression Integumentary: No Blood Disorders: No Family Medical History No Pertinent Family Hx Physical Exam Vital Signs Vital Signs - First Documented 02/06/21 20:07 Temp 37.8 Pulse 102 Resp 16 B/P (MAP) 107/90 (96) Pulse Ox 96 O2 Delivery Room Air Capillary Refill : Height, Weight, BMI Height: 5'11.00" Weight: 170lbs. oz. 77.882944xd; 23.00 BMI Method:Estimated General Appearance: WD/WN, Moderate Distress Eyes: Bilateral Eye Normal Inspection, Bilateral Eye PERRL, Bilateral Eye EOMI HEENT: PERRL/EOMI, Pharynx Normal; No Moist Mucous Membranes (Mildly dry oral mucosa) Neck: Full Range of Motion, Normal Inspection, Non Tender, Supple Respiratory: Chest Non Tender, Lungs Clear, Normal Breath Sounds, No Accessory Muscle Use, No Respiratory Distress Cardiovascular: Regular Rate, Rhythm, No Edema Gastrointestinal: Normal Bowel Sounds, No Organomegaly, Non Tender, Soft Neurologic/Psychiatric: Alert, Oriented x3 Skin: Normal Color, Warm/Dry Progress/Results/Core Measures Suspected Sepsis SIRS Temperature: Pulse: Respiratory Rate: Laboratory Tests 02/06/21 20:24: White Blood Count 4.3 Blood Pressure / Mean: Laboratory Tests 02/06/21 20:24: Creatinine 0.93, Platelet Count 137, Total Bilirubin 0.6 Results/Orders Lab Results Laboratory Tests Test 02/06/21 20:24 02/06/21 21:03 Range/Units White Blood Count 4.3 4.3-11.0 10^3/uL Red Blood Count 4.14 L 4.30-5.52 10^6/uL Hemoglobin 14.0 13.3-17.7 g/dL Hematocrit 40 40-54 % Mean Corpuscular Volume 97 80-99 fL Mean Corpuscular Hemoglobin 34 25-34 pg Mean Corpuscular Hemoglobin Concent 35 32-36 g/dL Red Cell Distribution Width 11.2 10.0-14.5 % Platelet Count 137 130-400 10^3/uL Mean Platelet Volume 12.2 9.0-12.2 fL Immature Granulocyte % (Auto) 1 % Neutrophils (%) (Auto) 78 H 42-75 % Lymphocytes (%) (Auto) 7 L 12-44 % Monocytes (%) (Auto) 13 H 0-12 % Eosinophils (%) (Auto) 1 0-10 % Basophils (%) (Auto) 1 0-10 % Neutrophils # (Auto) 3.4 1.8-7.8 10^3/uL Lymphocytes # (Auto) 0.3 L 1.0-4.0 10^3/uL Monocytes # (Auto) 0.6 0.0-1.0 10^3/uL Eosinophils # (Auto) 0.0 0.0-0.3 10^3/uL Basophils # (Auto) 0.0 0.0-0.1 10^3/uL Immature Granulocyte # (Auto) 0.0 0.0-0.1 10^3/uL Neutrophils % (Manual) 76 % Lymphocytes % (Manual) 7 % Monocytes % (Manual) 13 % Eosinophils % (Manual) 1 % Band Neutrophils 3 % Sodium Level 139 135-145 MMOL/L Potassium Level 3.3 L 3.6-5.0 MMOL/L Chloride Level 106 98-107 MMOL/L Carbon Dioxide Level 24 21-32 MMOL/L Anion Gap 9 5-14 MMOL/L Blood Urea Nitrogen 7 7-18 MG/DL Creatinine 0.93 0.60-1.30 MG/DL Estimat Glomerular Filtration Rate > 60 BUN/Creatinine Ratio 8 Glucose Level 125 H 70-105 MG/DL Calcium Level 9.0 8.5-10.1 MG/DL Corrected Calcium 9.0 8.5-10.1 MG/DL Total Bilirubin 0.6 0.1-1.0 MG/DL Aspartate Amino Transf (AST/SGOT) 16 5-34 U/L Alanine Aminotransferase (ALT/SGPT) 12 0-55 U/L Alkaline Phosphatase 84 40-136 U/L Total Creatine Kinase 98 30-200 U/L C-Reactive Protein High Sensitivity 0.75 H 0.00-0.50 MG/DL Total Protein 6.8 6.4-8.2 GM/DL Albumin 4.0 3.2-4.5 GM/DL Group A Streptococcus Screen NEGATIVE NEGATIVE My Orders Orders - SOPHIE PHAN Ketorolac Injection (Toradol Injection) (02/06/21 20:15) Ondansetron Injection (Zofran Injectio (02/06/21 20:15) Ed Iv/Invasive Line Start (02/06/21 20:07) Lactated Ringers (Lr 1000 Ml Iv Solution (02/06/21 20:15) Cbc With Automated Diff (02/06/21 20:07) Comprehensive Metabolic Panel (02/06/21 20:07) Hs C Reactive Protein (02/06/21 20:07) Creatine Kinase (02/06/21 20:07) Rapid Strep A Screen (02/06/21 20:13) Manual Differential (02/06/21 20:24) Covid 19 Inhouse Test (02/06/21 20:54) Influenza A And B By Pcr (02/06/21 20:54) Medications Given in ED Current Medications Medications Dose Ordered Sig/Glen Route Start Time Stop Time Status Last Admin Dose Admin Ketorolac Tromethamine 30 mg ONCE ONCE IVP 02/06/21 20:15 02/06/21 20:16 DC 02/06/21 20:21 30 MG Lactated Ringer's 1,000 ml @ 0 mls/hr Q0M ONCE IV 02/06/21 20:15 02/06/21 20:16 DC 02/06/21 20:22 999 MLS/HR Ondansetron HCl 4 mg ONCE ONCE IVP 02/06/21 20:15 02/06/21 20:16 DC 02/06/21 20:21 4 MG Vital Signs/I&O 02/06/21 20:07 Temp 37.8 Pulse 102 Resp 16 B/P (MAP) 107/90 (96) Pulse Ox 96 O2 Delivery Room Air Capillary Refill : Progress Note : Time: 20:12 Progress Note He is not having any pharyngitis and his throat is unremarkable on exam. Concern for viral infection versus exposure. Plan to get a CPK and give him a liter of fluids IV as well as some Toradol and Zofran for his symptoms. Departure Impression Primary Impression: COVID-19 Disposition: 01 HOME, SELF-CARE Condition: Stable Departure-Patient Inst. Decision time for Depature: 21:34 Referrals: NO,LOCAL PHYSICIAN (PCP/Family) Primary Care Physician Patient Instructions: COVID-19 (DC) Add. Discharge Instructions: Drink lots of fluids. Get plenty of rest and stay isolated from other people in your house. Your family needs to remain quarantined until 14 days after your last day of having symptoms. You need to remain on isolation until you are 72 hours symptoms free without the use of any medications to mask your symptoms. Tylenol 1000 mg every 8 hours as necessary for pain. Ibuprofen 800 mg every 8 hours as necessary for pain. Zofran 1 tablet under the tongue every 6 hours as necessary for nausea and/or vomiting. Return to the ER if you are having significantly worsening shortness of breath and/or oxygen saturation at rest less than 90%. All discharge instructions reviewed with patient and/or family. Voiced understanding. Scripts Ondansetron (Ondansetron Odt) 4 Mg Tab.rapdis 4 MG PO Q6H PRN for NAUSEA/VOMITING, #12 TAB 0 Refills Prov: SOPHIE PHAN 02/06/21 Work/School Note: Work Release Form Date Seen in the Emergency Department: Feb 06, 2021 Return to Work: Feb 16, 2021 Restrictions: No Restrictions Other Restrictions Listed Below: Off isolation when 72 h symptom-free without medications to mask symptoms. SOPHIE PHAN Feb 06, 2021 20:13
[2021-02-06] MEDS ORDERED: LACTATED RINGERS 1,000 ML IV ONE (20:15)
[2021-02-06] MEDS ORDERED: ONDANSETRON 4 MG/2 ML (SDV) Z0FRAN IVP ONE (20:15)
[2021-02-06] MEDS ORDERED: KETOROLAC 30 MG/ML VIAL IVP ONE (20:15)
[2021-02-06 20:46] LABS: BASOPHILS % (AUTO) 1 % (0-10); EOSINOPHILS % (AUTO) 1 % (0-10); HEMATOCRIT 40 % (40-54); LYMPHOCYTES # (AUTO) 0.3 10^3/uL (1.0-4.0); LYMPHOCYTES % (AUTO) 7 % (12-44); MEAN CORPUSCULAR HEMOGLOBIN 34 pg (25-34); MEAN CORPUSCULAR HGB CONC 35 g/dL (32-36); MEAN CORPUSCULAR VOLUME 97 fL (80-99); MEAN PLATELET VOLUME 12.2 fL (9.0-12.2); MONOCYTES # (AUTO) 0.6 10^3/uL (0.0-1.0); MONOCYTES % (AUTO) 13 % (0-12); NEUTROPHILS # (AUTO) 3.4 10^3/uL (1.8-7.8); NEUTROPHILS % (AUTO) 78 % (42-75); PLATELET COUNT 137 10^3/uL (130-400); WHITE BLOOD COUNT 4.3 10^3/uL (4.3-11.0)
[2021-02-06 21:04] LABS: ALANINE AMINOTRANSFERASE 12 U/L (0-55); ALKALINE PHOSPHATASE 84 U/L (40-136); BILIRUBIN,TOTAL 0.6 MG/DL (0.1-1.0); BUN/CREATININE RATIO 8; CARBON DIOXIDE 24 MMOL/L (21-32); CHLORIDE 106 MMOL/L (98-107); CREATINE KINASE 98 U/L (30-200); CREATININE SERUM 0.93 MG/DL (0.60-1.30); GFR ESTIMATED > 60; GLUCOSE 125 MG/DL (70-105); POTASSIUM 3.3 MMOL/L (3.6-5.0); SODIUM 139 MMOL/L (135-145); TOTAL PROTEIN 6.8 GM/DL (6.4-8.2)
[2021-02-06 21:08] LABS: BAND NEUTROPHILS 3 %; EOSINOPHILS % (MANUAL) 1 %; LYMPHOCYTES % (MANUAL) 7 %; MONOCYTES % (MANUAL) 13 %; NEUTROPHILS % (MANUAL) 76 %
[2021-02-06] MEDS ORDERED: ONDA4TAB11 PO (21:36)
[2021-02-06 21:50] VITALS: BP 105/80
== END 2021-02-06 21:50 | disposition home or self-care (01) ==
LOC: EDUNIT# 19:49 → ER 19:51
DX: U07.1 COVID-19 (principal); Z87.891 Personal history of nicotine dependence; Z88.8 Allergy status to other drugs, medicaments and biological substances
CPT/HCPCS: 36415; 80053; 82550; 85007; 85027; 86141; 87430; 87636

== ENCOUNTER 2021-06-09 09:05 | Emergency (ER) | payer MEDICAID ==
[~2021-06-09] VITALS: Ht 187 cm; Wt 81.6 kg
[~2021-06-09 09:05] MED LIST changes: -SULF1TAB35 PO; +SULF1TAB38 PO
[2021-06-09 10:10] LABS: BASOPHILS % (AUTO) 0 % (0-10); EOSINOPHILS # (AUTO) 0.1 10^3/uL (0.0-0.3); EOSINOPHILS % (AUTO) 2 % (0-10); HEMATOCRIT 42 % (40-54); HEMOGLOBIN 14.6 g/dL (13.3-17.7); LYMPHOCYTES # (AUTO) 1.4 10^3/uL (1.0-4.0); LYMPHOCYTES % (AUTO) 21 % (12-44); MEAN CORPUSCULAR HEMOGLOBIN 34 pg (25-34); MEAN CORPUSCULAR HGB CONC 35 g/dL (32-36); MEAN CORPUSCULAR VOLUME 97 fL (80-99); MEAN PLATELET VOLUME 11.4 fL (9.0-12.2); MONOCYTES # (AUTO) 0.7 10^3/uL (0.0-1.0); MONOCYTES % (AUTO) 11 % (0-12); NEUTROPHILS # (AUTO) 4.4 10^3/uL (1.8-7.8); NEUTROPHILS % (AUTO) 66 % (42-75); PLATELET COUNT 168 10^3/uL (130-400); WHITE BLOOD COUNT 6.7 10^3/uL (4.3-11.0)
[2021-06-09 10:22] LABS: CHLORIDE 106 MMOL/L (98-107); POTASSIUM 3.6 MMOL/L (3.6-5.0); SODIUM 139 MMOL/L (135-145)
[2021-06-09 10:22] LABS: AMPHETAMINE SCREEN, URINE NEGATIVE (NEGATIVE); BARBITURATE SCREEN URINE NEGATIVE (NEGATIVE); BENZODIAZEPINES SCREEN URINE NEGATIVE (NEGATIVE); CANNABINOID SCREEN, URINE POSITIVE (NEGATIVE); COCAINE SCREEN URINE NEGATIVE (NEGATIVE); METHADONE STAT NEGATIVE (NEGATIVE); METHAMPHETAMINE SCREEN URINE S NEGATIVE (NEGATIVE); OPIATE SCREEN URINE NEGATIVE (NEGATIVE); OXYCODONE STAT NEGATIVE (NEGATIVE); PROPOXYPHENE STAT NEGATIVE (NEGATIVE); TRICYCLIC ANTIDEPRESSANTS SCRE NEGATIVE (NEGATIVE)
[2021-06-09 10:23] LABS: CALCIUM 9.2 MG/DL (8.5-10.1)
[2021-06-09 10:24] LABS: GLUCOSE 108 MG/DL (70-105); TOTAL PROTEIN 6.7 GM/DL (6.4-8.2)
[2021-06-09 10:26] LABS: BILIRUBIN,TOTAL 0.9 MG/DL (0.1-1.0); CARBON DIOXIDE 23 MMOL/L (21-32)
[2021-06-09 10:28] LABS: ALKALINE PHOSPHATASE 87 U/L (40-136); CREATININE SERUM 0.99 MG/DL (0.60-1.30); GFR ESTIMATED 91
--- NOTE | 2021-06-09 10:28 | ED Chest Pain ---
General Chief Complaint: Chest Pain Stated Complaint: CP Nursing Triage Note: PT PRESENTS TO ED WITH COMPLAINTS OF CP STARTING 1 WEEK AGO, GOT WORSE TODAY WHILE IN AN ARGUMENT, PT THINKS ITS RELATED TO STRESS. PT DESCRIBES PAIN STABBING AND RADIATES UP INTO L SIDE OF HIS NECK. PT REPORTS HE HAS NOT TAKEN ANY MEDS TO HELP WITH PAIN. Source: patient Exam Limitations: no limitations (JAIR HERNANDEZ MED STUDENT) History of Present Illness Date Seen by Provider: Jun 09, 2021 Initial Comments This is Carmen a 26 yo male that presented to the ED via private vehicle with the chief complaint of recurrent chest pain for the past week. Pt states that the chest pain occurs during time of stress and includes radiation of the pain to the left shoulder. Pt had an argument with his roommate this morning at 0700 that caused him to experience these symptoms. Upon examination he puts his pain at a 0/10 and had resolved. He admits to smoking tobacco and marijuana regularly and mentioned doing cocaine sometime last month. Pt has a PMH is significant for removal of wisdom teeth and kidney stone which required surgery. Pts father of an NC at the age of 54 causing concern. (JAIR HERNANDEZ MED STUDENT) Time Seen by Provider: 09:39 (CEDRIC FOX MD) Allergies and Home Medications Allergies Coded Allergies: fentanyl (Verified Allergy, Unknown, LIPS SWELLED, 07/26/20) Patient Home Medication List Home Medication List Reviewed: Yes (CEDRIC FOX MD) Azithromycin (Azithromycin) 250 Mg Tablet, 250 MG PO DAILY Prescribed by: CEDRIC HODGSON on 12/18/20 0443 Nitrofurantoin Monohyd/M-Cryst (Macrobid 100 mg Capsule) 100 Mg Capsule, 1 TAB PO BID WITH MEALS Prescribed by: SANTANA ONEAL on 07/26/20 0954 Ondansetron (Ondansetron Odt) 4 Mg Tab.rapdis, 4 MG PO Q6H PRN for NAUSEA/VOMITING Prescribed by: SOPHIE PHAN on 02/06/21 2136 Oxycodone HCl/Acetaminophen (Percocet 5-325 mg Tablet) 1 Each Tablet, 1 TAB PO Q4H Prescribed by: BLUE BAXTER on 07/27/20 1308 Tamsulosin HCl (Flomax) 0.4 Mg Cap, 0.4 MG PO DAILY Prescribed by: SANTANA ONEAL on 07/26/20 0954 Tramadol HCl (Tramadol HCl) 50 Mg Tablet, 50 MG PO Q4H PRN for PAIN-MODERATE (5- 7) Prescribed by: SANTANA ONEAL on 07/26/20 0954 Review of Systems Review of Systems Constitutional: no symptoms reported EENTM: No Symptoms Reported Respiratory: No Symptoms Reported Cardiovascular: See HPI Gastrointestinal: No Symptoms Reported Genitourinary: No Symptoms Reported Musculoskeletal: no symptoms reported Skin: no symptoms reported Psychiatric/Neurological: See HPI Endocrine: No Symptoms Reported Hematologic/Lymphatic: No Symptoms Reported (CEDRIC FOX MD) Past Fgnwhtq-Qpmras-Mfgziy Hx Patient Social History Tobacco Use?: Yes Tobacco type used: Cigarettes Smoking Status: Current Everyday Smoker Substance use?: Yes Substance type: Marijuana Alcohol Use?: Yes Alcohol Frequency: Once in a while Pt feels they are or have been: No (JAIR HERNANDEZ) Tobacco Use?: Yes Tobacco type used: Cigarettes Smoking Status: Current Everyday Smoker Substance use?: Yes Substance type: Marijuana, Other (cocaine) Alcohol Use?: Yes Alcohol Frequency: Rarely (CEDRIC FOX MD) Immunizations Up To Date Tetanus Booster (TDap): Less than 5yrs First/Initial COVID19 Vaccinat: N/A Second COVID19 Vaccination James: N/A (JAIR HERNANDEZ) Seasonal Allergies Seasonal Allergies: Yes (JAIR HERNANDEZ) Past Medical History Surgeries: Yes (LITHOTRIPSY) Respiratory: No Currently Using CPAP: No Currently Using BIPAP: No Cardiac: No Neurological: No Reproductive Disorders: No Sexually Transmitted Disease: No HIV/AIDS: No Genitourinary: Yes Kidney Stones Gastrointestinal: Yes Gastroesophageal Reflux Musculoskeletal: No Endocrine: No HEENT: No Cancer: No Psychosocial: Yes Anxiety, Violent Behavior, Depression Integumentary: No Blood Disorders: No (JAIR HERNANDEZ) Surgeries: Yes ([place] teeth, ureteral stone removal) Respiratory: No Cardiac: No Neurological: No Genitourinary: Yes Kidney Stones Gastrointestinal: No Musculoskeletal: No Endocrine: No HEENT: No Cancer: No Psychosocial: No Integumentary: No (CEDRIC FOX MD) Family Medical History No Pertinent Family Hx (YORK,JAIR MED STUDENT) Physical Exam Vital Signs Vital Signs - First Documented 06/09/21 09:25 Temp 36.5 Pulse 68 Resp 18 B/P (MAP) 117/71 (86) Pulse Ox 98 (CEDRIC FOX MD) Vital Signs Capillary Refill : Less Than 3 Seconds (JAIR HERNANDEZ STUDENT) Height, Weight, BMI Height: 5'11.00" Weight: 170lbs. oz. 77.941346ah; 23.00 BMI Method:Estimated (JAIR HERNANDEZ STUDENT) General Appearance: No Apparent Distress, WD/WN HEENT: PERRL/EOMI, Normal ENT Inspection Neck: Normal Inspection Respiratory: Chest Non Tender, Lungs Clear, Normal Breath Sounds, No Accessory Muscle Use, No Respiratory Distress Cardiovascular: Regular Rate, Rhythm, No Edema, No Murmur Extremity: Normal Inspection, Non Tender, No Calf Tenderness, No Pedal Edema Neurologic/Psychiatric: Alert, Oriented x3, No Motor/Sensory Deficits, Normal Mood/Affect, agency trainer II-XII Norm as Tested Skin: Normal Color, Warm/Dry (CEDRIC FOX MD) Progress/Results/Core Measures Results/Orders Lab Results Laboratory Tests Test 06/09/21 09:58 06/09/21 10:02 06/09/21 12:22 Range/Units White Blood Count 6.7 4.3-11.0 10^3/uL Red Blood Count 4.28 L 4.30-5.52 10^6/uL Hemoglobin 14.6 13.3-17.7 g/dL Hematocrit 42 40-54 % Mean Corpuscular Volume 97 80-99 fL Mean Corpuscular Hemoglobin 34 25-34 pg Mean Corpuscular Hemoglobin Concent 35 32-36 g/dL Red Cell Distribution Width 11.0 10.0-14.5 % Platelet Count 168 130-400 10^3/uL Mean Platelet Volume 11.4 9.0-12.2 fL Immature Granulocyte % (Auto) 0 % Neutrophils (%) (Auto) 66 42-75 % Lymphocytes (%) (Auto) 21 12-44 % Monocytes (%) (Auto) 11 0-12 % Eosinophils (%) (Auto) 2 0-10 % Basophils (%) (Auto) 0 0-10 % Neutrophils # (Auto) 4.4 1.8-7.8 10^3/uL Lymphocytes # (Auto) 1.4 1.0-4.0 10^3/uL Monocytes # (Auto) 0.7 0.0-1.0 10^3/uL Eosinophils # (Auto) 0.1 0.0-0.3 10^3/uL Basophils # (Auto) 0.0 0.0-0.1 10^3/uL Immature Granulocyte # (Auto) 0.0 0.0-0.1 10^3/uL Erythrocyte Sedimentation Rate 3 0-15 MM/HR Prothrombin Time 14.0 12.2-14.7 SEC INR Comment 1.0 0.8-1.4 Activated Partial Thromboplast Time 29 24-35 SEC Sodium Level 139 135-145 MMOL/L Potassium Level 3.6 3.6-5.0 MMOL/L Chloride Level 106 98-107 MMOL/L Carbon Dioxide Level 23 21-32 MMOL/L Anion Gap 10 5-14 MMOL/L Blood Urea Nitrogen 16 7-18 MG/DL Creatinine 0.99 0.60-1.30 MG/DL Estimat Glomerular Filtration Rate 91 BUN/Creatinine Ratio 16 Glucose Level 108 H 70-105 MG/DL Calcium Level 9.2 8.5-10.1 MG/DL Corrected Calcium 9.2 8.5-10.1 MG/DL Magnesium Level 2.1 1.6-2.4 MG/DL Total Bilirubin 0.9 0.1-1.0 MG/DL Aspartate Amino Transf (AST/SGOT) 22 5-34 U/L Alanine Aminotransferase (ALT/SGPT) 19 0-55 U/L Alkaline Phosphatase 87 40-136 U/L Myoglobin 69.3 10.0-92.0 NG/ML Troponin I < 0.028 < 0.028 <0.028 NG/ML C-Reactive Protein High Sensitivity 0.28 0.00-0.50 MG/DL Total Protein 6.7 6.4-8.2 GM/DL Albumin 4.0 3.2-4.5 GM/DL Urine Opiates Screen NEGATIVE NEGATIVE Urine Oxycodone Screen NEGATIVE NEGATIVE Urine Methadone Screen NEGATIVE NEGATIVE Urine Propoxyphene Screen NEGATIVE NEGATIVE Urine Barbiturates Screen NEGATIVE NEGATIVE Ur Tricyclic Antidepressants Screen NEGATIVE NEGATIVE Urine Phencyclidine Screen NEGATIVE NEGATIVE Urine Amphetamines Screen NEGATIVE NEGATIVE Urine Methamphetamines Screen NEGATIVE NEGATIVE Urine Benzodiazepines Screen NEGATIVE NEGATIVE Urine Cocaine Screen NEGATIVE NEGATIVE Urine Cannabinoids Screen POSITIVE H NEGATIVE (CEDRIC FOX MD) My Orders Orders - CEDRIC FOX MD Cbc With Automated Diff (06/09/21 09:39) Magnesium (06/09/21 09:39) Chest 1 View, Ap/Pa Only (06/09/21 09:39) Ekg Tracing (06/09/21 09:39) Comprehensive Metabolic Panel (06/09/21 09:39) Myoglobin Serum (06/09/21 09:39) Protime With Inr (06/09/21 09:39) Partial Thromboplastin Time (06/09/21 09:39) O2 (06/09/21 09:39) Monitor-Rhythm Ecg Trace Only (06/09/21 09:39) Ed Iv/Invasive Line Start (06/09/21 09:39) Drug Screen Stat (Urine) (06/09/21 09:55) Erythrocyte Sedimentation Rate (06/09/21 10:14) Hs C Reactive Protein (06/09/21 09:58) Troponin I (06/09/21 09:58) Troponin I (06/09/21 12:00) (CEDRIC FOX MD) Vital Signs/I&O 06/09/21 06/09/21 09:25 13:22 Temp 36.5 36.5 Pulse 68 73 Resp 18 18 B/P (MAP) 117/71 (86) 91/57 Pulse Ox 98 98 (CEDRIC FOX MD) Blood Pressure Mean: 86 Progress Progress Note : Progress Note Patient remained pain free throughout his ER stay. The last 2 times I spoke with him in the room he was asleep and had to be woken for our conversation. He was quite comfortable. Work-up was unremarkable including a 2-hour troponin. Chest pain seems to be related to emotional state. Further evaluation and follow-up with his primary care provider was recommended. I did explain that a complete cardiac work-up cannot be performed in the ER setting. I strongly discouraged him from using cocaine and encouraged him to try quitting smoking. I discussed the extreme dangers of cocaine use. (CEDRIC FOX MD) Initial ECG Impression Date: Jun 09, 2021 Initial ECG Impression Time: 09:35 Initial ECG Rate: 69 Initial ECG Rhythm: Normal Sinus Comment Sinus rhythm with no ischemic ST elevation or depression. No abnormal intervals. Diffuse ST changes representing early repolarization of juvenile pattern noted. (CEDRIC FOX MD) Diagnostic Imaging Diagonstic Imaging: Xray Plain Films/CT/US/NM/MRI: chest Comments Chest x-ray viewed by me and report reviewed. See report below: NAME: [facility] REC#: [id number] PT STATUS: REG ER : 1995 PHYSICIAN: CEDRIC FOX MD ADMIT DATE: 06/09/21/ER Signed Date of Exam:06/09/21 CHEST 1 VIEW, AP/PA ONLY EXAMINATION: Chest radiograph, portable AP view. DATE: 06/09/2021 10:28 AM INDICATION: 26-year-old male, chest pain. COMPARISON: December 18, 2020. FINDINGS: Heart size and mediastinal contours are unchanged. There is no identified pneumothorax. There is no large pleural effusion. There is no identified focal airspace consolidation. IMPRESSION: No identified acute cardiopulmonary abnormality. Dictated by: Dictated on workstation # [id number] Dict: 06/09/21 1028 Trans: 06/09/21 1202 [facility] [id number] Interpreted by: LATOYA CORBIN MD Electronically signed by: LATOYA CORBIN MD 06/09/21 1202 (CEDRIC FOX MD) Departure Impression Primary Impression: Atypical chest pain Additional Impression: Polysubstance abuse Disposition: 01 HOME, SELF-CARE Condition: Improved Departure-Patient Inst. Decision time for Depature: 13:06 (CEDRIC FOX MD) Referrals: NO,LOCAL PHYSICIAN (PCP/Family) Primary Care Physician Patient Instructions: Chest Pain That Is Not Caused by the Heart (DC) Add. Discharge Instructions: Your chest pain that does not appear to be related to cardiac disease based on the evaluation you received in the emergency room. However, it is important that you follow-up with your primary care provider soon as possible to discuss your symptoms further. You and your primary care provider may pursue further cardiac evaluation at your doctor's discretion. It is possible your symptoms are related to anxiety given the circumstances in which chest pain seems to arise. For your overall health including your heart health, it is important that you reduce smoking and work toward quitting as soon as possible. Also avoid any illicit substances such as marijuana or cocaine. Cocaine in particular can be very dangerous to your heart. Call with questions or concerns. Return to the ER if you have worsening symptoms. All discharge instructions reviewed with patient and/or family. Voiced randy lloyd. Medical Student Attestation and Attending Note: I have personally interviewed and examined this patient along with SILVINA Solis. I have reviewed student documentation including history, physical, and assessments. I agree with the documentation except where otherwise noted. (CEDRIC FOX MD) JAIR HERNANDEZ MED STUDENT Jun 09, 2021 10:28 CEDRIC FOX MD Jun 09, 2021 13:06
[2021-06-09 10:29] LABS: BUN/CREATININE RATIO 16
[2021-06-09 10:31] LABS: ALANINE AMINOTRANSFERASE 19 U/L (0-55); MAGNESIUM 2.1 MG/DL (1.6-2.4)
--- NOTE | 2021-06-09 10:36 | Diagnostic Imaging Report ---
EXAMINATION: Chest radiograph, portable AP view. DATE: 06/09/2021 10:28 AM INDICATION: 26-year-old male, chest pain. COMPARISON: December 18, 2020. FINDINGS: Heart size and mediastinal contours are unchanged. There is no identified pneumothorax. There is no large pleural effusion. There is no identified focal airspace consolidation. IMPRESSION: No identified acute cardiopulmonary abnormality. Dictated by: Dictated on workstation # [id number]
[2021-06-09 13:22] VITALS: BP 91/57
== END 2021-06-09 13:22 | disposition home or self-care (01) ==
LOC: EDUNIT# 09:05 → ER 09:06
DX: R07.89 Other chest pain (principal); F19.10 Other psychoactive substance abuse, uncomplicated; F17.210 Nicotine dependence, cigarettes, uncomplicated
CPT/HCPCS: 36415; 71045; 80053; 80306; 83735; 83874; 84484; 85025; 85610; 85652; 85730; 86141; 93005; 93041

== ENCOUNTER 2021-08-23 16:34 | Emergency (ER) | payer MEDICAID ==
[~2021-08-23] VITALS: Ht 187 cm; Wt 77.0 kg
--- NOTE | 2021-08-23 16:51 | ED Respiratory ---
General Stated Complaint: COUGH,SORE THROAT, BODY ACHES, FEVER Source: patient Exam Limitations: no limitations (ROSARIO WARNER) History of Present Illness Date Seen by Provider: Aug 23, 2021 Time Seen by Provider: 16:49 Initial Comments Patient is a 26-year-old who presents ED with URI symptoms. Reports nasal congestion, sore scratchy throat and cough. Reports mild shortness of breath. Symptoms over the past 2 to 3 days. Patient states he works at [employer] and has a few friends that tested positive for Covid. He also states he goes in and out of the cooler and a warmer area daily at his job. Denies history of asthma, COPD. Does smoke. Denies fever, current vomiting or diarrhea, chest pain or abdominal pain. Did have vomiting diarrhea last week which has improved. Denies taking medication at home. Denies dizziness, headache, neck pain, visual changes, ear pain. (ROSARIO WARNER) Allergies and Home Medications Allergies Coded Allergies: fentanyl (Verified Allergy, Unknown, LIPS SWELLED, 07/26/20) Patient Home Medication List Home Medication List Reviewed: Yes (ROSARIO WARNER) Azithromycin (Azithromycin) 250 Mg Tablet, 250 MG PO DAILY Prescribed by: CEDRIC HODGSON on 12/18/20 0443 Nitrofurantoin Monohyd/M-Cryst (Macrobid 100 mg Capsule) 100 Mg Capsule, 1 TAB PO BID WITH MEALS Prescribed by: SANTANA ONEAL on 07/26/20 0954 Ondansetron (Ondansetron Odt) 4 Mg Tab.rapdis, 4 MG PO Q6H PRN for NAUSEA/VOMITING Prescribed by: SOPHIE PHAN on 02/06/21 2136 Oxycodone HCl/Acetaminophen (Percocet 5-325 mg Tablet) 1 Each Tablet, 1 TAB PO Q4H Prescribed by: BLUE BAXTER on 07/27/20 1308 Tamsulosin HCl (Flomax) 0.4 Mg Cap, 0.4 MG PO DAILY Prescribed by: SANTANA ONEAL on 07/26/20 0954 Tramadol HCl (Tramadol HCl) 50 Mg Tablet, 50 MG PO Q4H PRN for PAIN-MODERATE (5- 7) Prescribed by: SANTANA ONEAL on 07/26/20 0954 Review of Systems Review of Systems Constitutional: No diaphoresis, No dizziness; malaise EENTM: nose congestion; No ear pain, No blurred vision, No eye pain, No mouth pain, No mouth swelling Respiratory: cough; No orthopnea, No phlegm; short of breath; No stridor, No wheezing Cardiovascular: No edema Gastrointestinal: No constipation, No diarrhea, No loss of appetite, No vomiting Genitourinary: No decreased output, No discharge Musculoskeletal: No back pain, No joint pain Skin: No change in color, No change in hair/nails (ROSARIO WARNER) All Other Systems Reviewed Negative Unless Noted: Yes (ROSARIO WARNER) Past Pqhxbuj-Qtsmrf-Nmkldi Hx Immunizations Up To Date Tetanus Booster (TDap): Less than 5yrs First/Initial COVID19 Vaccinat: N/A Second COVID19 Vaccination James: N/A (ROSARIO WARNER) Seasonal Allergies Seasonal Allergies: Yes (ROSARIO WARNER) Past Medical History Surgeries: Yes ([place] teeth, ureteral stone removal) Respiratory: No Currently Using CPAP: No Currently Using BIPAP: No Cardiac: No Neurological: No Reproductive Disorders: No Sexually Transmitted Disease: No HIV/AIDS: No Genitourinary: Yes Kidney Stones Gastrointestinal: No Gastroesophageal Reflux Musculoskeletal: No Endocrine: No HEENT: No Cancer: No Psychosocial: No Anxiety, Violent Behavior, Depression Integumentary: No Blood Disorders: No (ROSARIO WARNER) Family Medical History No Pertinent Family Hx (ROSAIRO WARNER) Physical Exam Vital Signs - First Documented 08/23/21 16:40 Temp 36.4 Pulse 70 Resp 20 B/P (MAP) 108/67 (81) Pulse Ox 97 (CEDRIC FOX MD) Capillary Refill : (ROSARIO WARNER) Height: 5'11.00" Weight: 170lbs. oz. 77.759764yc; 23.00 BMI Method:Estimated General Appearance: WD/WN, no apparent distress Eyes: Bilateral Eye Normal Inspection, Bilateral Eye PERRL, Bilateral Eye EOMI HEENT: PERRL/EOMI, normal ENT inspection, pharynx normal Neck: non-tender, full range of motion, supple Respiratory: chest non-tender, lungs clear, normal breath sounds, no respiratory distress, no accessory muscle use Cardiovascular: regular rate, rhythm, no edema, no gallop, no JVD Gastrointestinal: normal bowel sounds, non tender, soft, no organomegaly Extremities: normal range of motion, non-tender, normal inspection, no pedal edema Skin: normal color, warm/dry (ROSARIO WARNER) Progress/Results/Core Measures Suspected Sepsis SIRS Temperature: Pulse: Respiratory Rate: Blood Pressure / Mean: (ROSARIO WARNER) Results/Orders Lab Results Laboratory Tests Test 08/23/21 16:45 Range/Units Influenza Type A (RT-PCR) Not Detected Not Detecte Influenza Type B (RT-PCR) Not Detected Not Detecte SARS-CoV-2 RNA (RT-PCR) Not Detected Not Detecte (CEDRIC FOX MD) Vital Signs/I&O 08/23/21 08/23/21 16:40 17:49 Temp 36.4 36.4 Pulse 70 70 Resp 20 20 B/P (MAP) 108/67 (81) 108/67 Pulse Ox 97 97 (CEDRIC FOX MD) Vital Signs/I&O Capillary Refill : (ROSARIO WARNER) Departure Communication (Admissions) Patient is a 26-year-old male who presents to ED with URI symptoms. Patient no current chest pain, shortness of breath or abdominal pain. Vital signs stable. Lung sounds clear bilateral. Exam otherwise benign. Covid and influenza negative. This appears to be viral in nature. Recommend conservative treatment at this time. If any worsening symptoms return back to ED for further evaluation. Discussed Sana Boggs Sudafed outpatient. Follow-up with your PCP in 2 to 3 days for evaluation. (ROSARIO WARNER) Impression Primary Impression: Upper respiratory infection Disposition: 01 HOME, SELF-CARE Condition: Stable Departure-Patient Inst. Decision time for Depature: 17:29 (ROSARIO WARNER) Referrals: NO,LOCAL PHYSICIAN (PCP/Family) Primary Care Physician Patient Instructions: Viral Upper Respiratory Infection, Adult (DC) Work/School Note: Family Work Note, Work Release Form Date Seen in the Emergency Department: Aug 23, 2021 Return to Work: Aug 27, 2021 ATTENDING PHYSICIAN NOTE: I was physically present as attending physician in the emergency department during the care of this patient, but I was not directly involved in the decision making or delivery of care for this patient. (CEDRIC FOX MD) ROSARIO WARNER Aug 23, 2021 16:51 CEDRIC FOX MD Aug 23, 2021 19:16
[2021-08-23 17:49] VITALS: BP 108/67
== END 2021-08-23 17:49 | disposition home or self-care (01) ==
LOC: EDUNIT# 16:34 → ER 16:35
DX: J06.9 Acute upper respiratory infection, unspecified (principal); Z20.822 Contact with and (suspected) exposure to COVID-19
CPT/HCPCS: 87636; 99283

== ENCOUNTER 2022-02-17 05:43 | Emergency (ER) | payer MEDICAID ==
[2022-02-17] MEDS ORDERED: IBUPROFEN TABLET 200 MG TAB PO ONE (06:30)
--- NOTE | 2022-02-17 06:53 | ED General ---
General Chief Complaint: COVID19 Suspect/Confirmed Stated Complaint: BODY ACHES,CONGESTION,CHILLS Nursing Triage Note: PT NAME CALLED FOR TRIAGE AND PT NOTED TO BE LAYING ON ER WAITING ROOM FLOOR. PT THEN AMBULATES TO ROOM 10 WITHOUT DIFFICULTY. PT C/O BODY ACHES, CHILLS, DRY COUGH SINCE 2344 LAST NIGHT. HAS NOT TAKEN ANY TYLENOL, MOTRIN, OR OTHER OTC MEDS. PT STATESS, "THIS FEELS LIKE WHEN I HAD COVID BEFORE AND I JUST NEED TO KNOW IF I HAVE IT AGAIN". Source of Information: Patient Exam Limitations: No Limitations History of Present Illness Date Seen by Provider: Feb 17, 2022 Time Seen by Provider: 06:01 Initial Comments This 26-year-old young man presents to the emergency room with complaints of flulike symptoms. Symptoms started last night around 2300 when he woke up to get ready for work. He was feeling ill with headache, chills, dry cough, and body aches. He is not aware of any fever. He reports the symptoms are reminiscent of his prior COVID-19 infection. He has not taken any medications for his symptoms. Allergies and Home Medications Allergies Coded Allergies: fentanyl (Verified Allergy, Unknown, LIPS SWELLED, 07/26/20) Patient Home Medication List Home Medication List Reviewed: Yes Azithromycin (Azithromycin) 250 Mg Tablet, 250 MG PO DAILY Prescribed by: CEDRIC HODGSON on 12/18/20 0443 Nitrofurantoin Monohyd/M-Cryst (Macrobid 100 mg Capsule) 100 Mg Capsule, 1 TAB PO BID WITH MEALS Prescribed by: SANTANA ONEAL on 07/26/20 0954 Ondansetron (Ondansetron Odt) 4 Mg Tab.rapdis, 4 MG PO Q6H PRN for JIM SEA/VOMITING Prescribed by: SOPHIE PHAN on 02/06/21 2136 Oxycodone HCl/Acetaminophen (Percocet 5-325 mg Tablet) 1 Each Tablet, 1 TAB PO Q4H Prescribed by: BLUE BAXTER on 07/27/20 1308 Tamsulosin HCl (Flomax) 0.4 Mg Cap, 0.4 MG PO DAILY Prescribed by: SANTANA ONEAL on 07/26/20 0954 Tramadol HCl (Tramadol HCl) 50 Mg Tablet, 50 MG PO Q4H PRN for PAIN-MODERATE (5- 7) Prescribed by: SANTANA ONEAL on 07/26/20 0954 Review of Systems Review of Systems Constitutional: see HPI EENTM: no symptoms reported Respiratory: see HPI Cardiovascular: no symptoms reported Gastrointestinal: no symptoms reported Genitourinary: no symptoms reported Musculoskeletal: see HPI Skin: no symptoms reported Psychiatric/Neurological: See HPI Hematologic/Lymphatic: No Symptoms Reported Past Fckceuj-Uzhplk-Jpzfro Hx Patient Social History Tobacco Use?: Yes Tobacco type used: Cigarettes Smoking Status: Current Everyday Smoker Substance use?: Yes Substance type: Marijuana Alcohol Use?: No Immunizations Up To Date Tetanus Booster (TDap): Less than 5yrs First/Initial COVID19 Vaccinat: N/A Second COVID19 Vaccination James: N/A Third COVID19 Vaccination Date: N/A Seasonal Allergies Seasonal Allergies: Yes Past Medical History Surgeries: Yes ([place] teeth, ureteral stone removal) Renal (Kidney stone) Respiratory: Yes (COVID-19 infection) Currently Using CPAP: No Currently Using BIPAP: No Cardiac: No Neurological: No Reproductive Disorders: No Sexually Transmitted Disease: No HIV/AIDS: No Genitourinary: Yes Kidney Stones Gastrointestinal: No Gastroesophageal Reflux Musculoskeletal: No Endocrine: No HEENT: No Cancer: No Psychosocial: Yes Anxiety, Violent Behavior, Depression Integumentary: No Blood Disorders: No Family Medical History No Pertinent Family Hx Physical Exam Vital Signs Vital Signs - First Documented 02/17/22 06:12 Temp 36.7 Pulse 84 Resp 16 B/P (MAP) 123/74 (90) Pulse Ox 97 O2 Delivery Room Air Capillary Refill : Less Than 3 Seconds Height, Weight, BMI Height: 5'11.00" Weight: 170lbs. oz. 77.948013hz; 22.00 BMI Method:Estimated General Appearance: No Apparent Distress, WD/WN, Thin HEENT: PERRL/EOMI, TMs Normal, Normal ENT Inspection; No Pharyngeal Erythema; Other (Oropharynx somewhat dry) Neck: Normal Inspection; No JVD Respiratory: Lungs Clear, Normal Breath Sounds, No Accessory Muscle Use, No Respiratory Distress Cardiovascular: Regular Rate, Rhythm, No Edema, No Murmur Gastrointestinal: Normal Bowel Sounds, Non Tender, Soft Extremity: Normal Inspection Neurologic/Psychiatric: Alert, Oriented x3, No Motor/Sensory Deficits Skin: Normal Color, Warm/Dry Progress/Results/Core Measures Suspected Sepsis SIRS Temperature: Pulse: 84 Respiratory Rate: 16 Blood Pressure 123 /74 Mean: 90 Results/Orders Lab Results Laboratory Tests Test 02/17/22 06:14 Range/Units Influenza Type A (RT-PCR) Not Detected Not Detecte Influenza Type B (RT-PCR) Not Detected Not Detecte SARS-CoV-2 RNA (RT-PCR) Detected H Not Detecte My Orders Orders - CEDRIC FOX MD Covid 19 Inhouse Test (02/17/22 06:01) Influenza A And B By Pcr (02/17/22 06:01) Ibuprofen Tablet (Motrin Tablet) (02/17/22 06:30) Vital Signs/I&O 02/17/22 02/17/22 02/17/22 06:12 06:12 06:57 Temp 36.7 36.7 Pulse 84 82 Resp 16 16 B/P (MAP) 123/74 (90) 94/61 Pulse Ox 97 99 O2 Delivery Room Air Room Air Room Air Capillary Refill : Less Than 3 Seconds Blood Pressure Mean: 90 Progress Note : Progress Note Vital signs and exam were unremarkable. COVID-19 test positive. See discharge instructions for further discussion. Departure Impression Primary Impression: COVID-19 Disposition: 01 HOME, SELF-CARE Condition: Stable Departure-Patient Inst. Decision time for Depature: 06:48 Referrals: NO,LOCAL PHYSICIAN (PCP/Family) Primary Care Physician Patient Instructions: COVID-19 ED Add. Discharge Instructions: You were diagnosed with COVID-19. Please quarantine for at least 5 days and until your symptoms resolve. Then mask for an additional 5 days. Please notify all individuals with which you had close contact over the past 48 hours. Drink plenty of clear liquids to stay well-hydrated. You may take ibuprofen up to 600 mg every 6 hours and/or Tylenol (acetaminophen) up to 1000 mg every 6 hours as needed for treatment of headache, fever, and body aches. Avoid being sedentary for prolonged periods of time. Change positions often while lying in bed. Get up and move around or walk around the house often. If you have access to a pulse oximeter, check your oxygen saturation a couple times a day or at times you feel short of breath. If you have any oxygen saturation less than 90% or multiple oxygen saturations 92%, return to the emergency room. Eat a well-balanced diet and take a multivitamin. Return to the ER if you have notable worsening symptoms and need to be reevaluated. All discharge instructions reviewed with patient and/or family. Voiced understanding. Work/School Note: Work Release Form Date Seen in the Emergency Department: Feb 17, 2022 Return to Work: Feb 22, 2022 Other Restrictions Listed Below: Quarantine 5 days. Mask an additional 5 days. Restrictions: May return after 5-day quarantine if symptoms have resolved. Mask 5 days. CEDRIC FOX MD Feb 17, 2022 06:53
[2022-02-17 06:57] VITALS: BP 94/61
== END 2022-02-17 07:01 | disposition home or self-care (01) ==
LOC: EDUNIT# 05:43 → ER 05:45
DX: U07.1 COVID-19 (principal); F17.210 Nicotine dependence, cigarettes, uncomplicated; Z28.310 Unvaccinated for COVID-19
CPT/HCPCS: 87636; 99283

== ENCOUNTER 2022-02-18 14:07 | Emergency (ER) | payer MEDICAID ==
[~2022-02-18] VITALS: Ht 187 cm; Wt 80.0 kg
[2022-02-18] MEDS ORDERED: IBUPROFEN 800 MG (MOTRIN) TAB PO STA (15:19)
--- NOTE | 2022-02-18 15:46 | Diagnostic Imaging Report ---
Indication: Chest wall pain. Findings: Lungs are clear. No failure, effusion or pneumothorax. Cardiomediastinal and hilar contours unremarkable. Impression: No acute-appearing abnormality. Dictated by: Dictated on workstation # [id number]
--- NOTE | 2022-02-18 15:50 | ED Respiratory ---
General Chief Complaint: COVID19 Suspect/Confirmed Stated Complaint: LUQ PAIN, DIZZINESS, COVID + Nursing Triage Note: PT CO OF HAVING COVID SINCE FRIDAY NITE, PT CO OF L CHEST WALL PAIN 04/03 History of Present Illness Date Seen by Provider: Feb 18, 2022 Time Seen by Provider: 14:45 Initial Comments 26 year old male, COVID +. Complaining of Chest Wall pain from coughing. Has been taking Tylenol 1,000 mg every 3-4 hours. Timing/Duration: other (3 days) Severity: mild Prior Episodes/Possible Cause: no prior episodes Associated Symptoms: chest pain/soreness, cough; No dizziness, No fever/chills; muscle aches; No shortness of breath Allergies and Home Medications Allergies Coded Allergies: fentanyl (Verified Allergy, Unknown, LIPS SWELLED, 07/26/20) Patient Home Medication List Home Medication List Reviewed: Yes Azithromycin (Azithromycin) 250 Mg Tablet, 250 MG PO DAILY Prescribed by: CEDRIC HODGSON on 12/18/20 0443 Nitrofurantoin Monohyd/M-Cryst (Macrobid 100 mg Capsule) 100 Mg Capsule, 1 TAB PO BID WITH MEALS Prescribed by: SANTANA ONEAL on 07/26/20 0954 Ondansetron (Ondansetron Odt) 4 Mg Tab.rapdis, 4 MG PO Q6H PRN for NAUSEA/VOMITING Prescribed by: SOPHIE PHAN on 02/06/21 2136 Oxycodone HCl/Acetaminophen (Percocet 5-325 mg Tablet) 1 Each Tablet, 1 TAB PO Q4H Prescribed by: BLUE BAXTER on 07/27/20 1308 Tamsulosin HCl (Flomax) 0.4 Mg Cap, 0.4 MG PO DAILY Prescribed by: SANTANA ONEAL on 07/26/20 0954 Tramadol HCl (Tramadol HCl) 50 Mg Tablet, 50 MG PO Q4H PRN for PAIN-MODERATE (5- 7) Prescribed by: SANTANA ONEAL on 07/26/20 0954 Review of Systems Review of Systems Constitutional: see HPI, malaise EENTM: see HPI, no symptoms reported Respiratory: see HPI, cough; No short of breath; other (left lateral chest wall pain) Cardiovascular: no symptoms reported, see HPI Gastrointestinal: no symptoms reported, see HPI All Other Systems Reviewed Negative Unless Noted: Yes Past Ksycpew-Xszaob-Tflqhq Hx Immunizations Up To Date Tetanus Booster (TDap): Less than 5yrs First/Initial COVID19 Vaccinat: N/A Second COVID19 Vaccination James: N/A Third COVID19 Vaccination Date: N/A Seasonal Allergies Seasonal Allergies: Yes Past Medical History Surgeries: Yes ([place] teeth, ureteral stone removal) Renal Respiratory: Yes (COVID-19 infection) Currently Using CPAP: No Currently Using BIPAP: No Cardiac: No Neurological: No Reproductive Disorders: No Sexually Transmitted Disease: No HIV/AIDS: No Genitourinary: Yes Kidney Stones Gastrointestinal: No Gastroesophageal Reflux Musculoskeletal: No Endocrine: No HEENT: No Cancer: No Psychosocial: Yes Anxiety, Violent Behavior, Depression Integumentary: No Blood Disorders: No Family Medical History Reviewed Nursing Family Hx No Pertinent Family Hx Physical Exam Vital Signs - First Documented 02/18/22 14:40 Temp 36.4 Pulse 75 Resp 18 B/P (MAP) 115/65 (82) Capillary Refill : Less Than 3 Seconds Height: 5'11.00" Weight: 170lbs. oz. 77.572511eh; 22.00 BMI Method:Estimated General Appearance: WD/WN, no apparent distress Eyes: Bilateral Eye Normal Inspection, Bilateral Eye PERRL, Bilateral Eye EOMI HEENT: PERRL/EOMI, normal ENT inspection, TMs normal, pharynx normal Neck: non-tender, full range of motion, supple, normal inspection Respiratory: lungs clear, normal breath sounds, other (left lateral chest wall pain to palpation. ) Cardiovascular: normal peripheral pulses, regular rate, rhythm Gastrointestinal: normal bowel sounds, non tender, soft Neurologic/Psychiatric: no motor/sensory deficits, alert, normal mood/affect, oriented x 3 Skin: normal color, warm/dry Progress/Results/Core Measures Suspected Sepsis SIRS Temperature: Pulse: 75 Respiratory Rate: 18 Blood Pressure 115 /65 Mean: 82 Results/Orders My Orders Orders - AMISH CONTRERAS Chest 1 View, Ap/Pa Only (02/18/22 15:19) Ibuprofen Tablet (Motrin Tablet) (02/18/22 15:19) Vital Signs/I&O 02/18/22 14:40 Temp 36.4 Pulse 75 Resp 18 B/P (MAP) 115/65 (82) Capillary Refill : Less Than 3 Seconds Blood Pressure Mean: 82 Diagnostic Imaging Diagonstic Imaging: Xray Plain Films/CT/US/NM/MRI: chest Comments ARMANDO: [facility] REC#: [id number] PT STATUS: REG ER : 1995 PHYSICIAN: AMISH CONTRERAS ADMIT DATE: 02/18/22/ER Draft Date of Exam:02/18/22 CHEST 1 VIEW, AP/PA ONLY Indication: Chest wall pain. Findings: Lungs are clear. No failure, effusion or pneumothorax. Cardiomediastinal and hilar contours unremarkable. Impression: No acute-appearing abnormality. Dictated on workstation # [id number] Dict: 02/18/22 1541 Trans: 02/18/22 1546 CV [id number] Interpreted by: CARLO ARMANDO Electronically signed by: Reviewed: Reviewed by Me Departure Impression Primary Impression: Pleuritic chest pain Additional Impression: COVID-19 Disposition: 01 HOME, SELF-CARE Condition: Improved Departure-Patient Inst. Decision time for Depature: 15:50 Referrals: [facility] [place]YSICIAN (PCP) Primary Care Physician Patient Instructions: COVID-19 (DC), Pleuritic Chest Pain (DC) Add. Discharge Instructions: Alternate between Tylenol 650 mg and ibuprofen 600 mg every 4 hours for pain or fever. Take yaoo-rdf-pyveduk cough suppressant as needed. Follow-up at [facility] if symptoms or not improving or worsen. Return to the emergency department for new, urgent healthcare needs. All discharge instructions reviewed with patient and/or family. Voiced understanding. AMISH CONTRERAS Feb 18, 2022 15:50
[2022-02-18 16:14] VITALS: BP 110/60
== END 2022-02-18 16:15 | disposition home or self-care (01) ==
LOC: EDUNIT# 14:07 → ER 14:09
DX: U07.1 COVID-19 (principal); Z28.310 Unvaccinated for COVID-19; Z73.0 Burn-out
CPT/HCPCS: 71045

== ENCOUNTER 2022-04-01 22:09 | Emergency (ER) | payer MEDICAID ==
[~2022-04-01] VITALS: Ht 188 cm; Wt 74.8 kg
[2022-04-01] MEDS ORDERED: HYOSCYAMINE 0.125 MG (LEVSIN) TAB PO ONE (22:45)
[2022-04-01] MEDS ORDERED: LACTATED RINGERS 1,000 ML IV ONE (22:45)
[2022-04-01] MEDS ORDERED: ONDANSETRON 4 MG/2 ML (SDV) Z0FRAN IVP ONE (22:45)
[2022-04-01 22:52] LABS: BASOPHILS % (AUTO) 0 % (0-10); EOSINOPHILS # (AUTO) 0.1 10^3/uL (0.0-0.3); EOSINOPHILS % (AUTO) 1 % (0-10); HEMATOCRIT 43 % (40-54); LYMPHOCYTES # (AUTO) 1.4 10^3/uL (1.0-4.0); LYMPHOCYTES % (AUTO) 13 % (12-44); MEAN CORPUSCULAR HEMOGLOBIN 34 pg (25-34); MEAN CORPUSCULAR HGB CONC 35 g/dL (32-36); MEAN CORPUSCULAR VOLUME 96 fL (80-99); MEAN PLATELET VOLUME 11.8 fL (9.0-12.2); MONOCYTES # (AUTO) 0.8 10^3/uL (0.0-1.0); MONOCYTES % (AUTO) 8 % (0-12); NEUTROPHILS # (AUTO) 8.6 10^3/uL (1.8-7.8); NEUTROPHILS % (AUTO) 78 % (42-75); PLATELET COUNT 166 10^3/uL (130-400)
[2022-04-01 22:55] LABS: ALBUMIN 4.5 GM/DL (3.2-4.5); POTASSIUM 3.5 MMOL/L (3.6-5.0)
[2022-04-01 22:56] LABS: CALCIUM 9.6 MG/DL (8.5-10.1)
[2022-04-01 22:58] LABS: TOTAL PROTEIN 7.5 GM/DL (6.4-8.2)
[2022-04-01 22:59] LABS: BILIRUBIN,TOTAL 1.7 MG/DL (0.1-1.0)
[2022-04-01 23:01] LABS: CREATININE SERUM 1.01 MG/DL (0.60-1.30)
[2022-04-01 23:46] LABS: BILIRUBIN,URINE NEGATIVE (NEGATIVE); CLARITY,URINE CLEAR; COLOR,URINE YELLOW; GLUCOSE, URINE (UA) NEGATIVE (NEGATIVE); KETONES,URINE TRACE (NEGATIVE); LEUKOCYTE ESTERASE ,URINE NEGATIVE (NEGATIVE); NITRITE,URINE NEGATIVE (NEGATIVE); PROTEIN,URINE TRACE (NEGATIVE)
[2022-04-01 23:54] LABS: BACTERIA,URINE TRACE /HPF
[2022-04-02] MEDS ORDERED: HYOS0.1283 SL (00:07)
--- NOTE | 2022-04-02 00:08 | ED Abdominal Pain ---
General Chief Complaint: Abdominal/GI Problems Stated Complaint: ABD PAIN Nursing Triage Note: PT TO ROOM BY [facility]. PT REPORTS ABDOMEN PAIN IN ALL 4 QUADRANTS AND DIARRHEA STARTING AT 2034 TONIGHT. PT REPORTS HE ATE [facility] AT 1999 AND THINKS HE HAS LACTOSE INTOLERANCE BUT HAS NEVER BEEN DIAGNOSED WITH THIS. PT REPORTS PAIN IS A 02/01 Source of Information: Patient Exam Limitations: No Limitations Allergies and Home Medications Allergies Coded Allergies: fentanyl (Verified Allergy, Unknown, LIPS SWELLED, 07/26/20) Patient Home Medication List Azithromycin (Azithromycin) 250 Mg Tablet, 250 MG PO DAILY Prescribed by: CEDRIC HODGSON on 12/18/20 0443 Nitrofurantoin Monohyd/M-Cryst (Macrobid 100 mg Capsule) 100 Mg Capsule, 1 TAB PO BID WITH MEALS Prescribed by: SANTANA ONEAL on 07/26/20 0954 Ondansetron (Ondansetron Odt) 4 Mg Tab.rapdis, 4 MG PO Q6H PRN for NAUSEA/VOMITING Prescribed by: SOPHIE PHAN on 02/06/21 2136 Oxycodone HCl/Acetaminophen (Percocet 5-325 mg Tablet) 1 Each Tablet, 1 TAB PO Q4H Prescribed by: BLUE BAXTER on 07/27/20 1308 Tamsulosin HCl (Flomax) 0.4 Mg Cap, 0.4 MG PO DAILY Prescribed by: SANTANA ONEAL on 07/26/20 0954 Tramadol HCl (Tramadol HCl) 50 Mg Tablet, 50 MG PO Q4H PRN for PAIN-MODERATE (5- 7) Prescribed by: SANTANA ONEAL on 07/26/20 0954 Past Wuuknni-Gutrvc-Mmhwcu Hx Patient Social History Tobacco Use?: Yes Tobacco type used: Cigarettes Smoking Status: Current Everyday Smoker Use of E-Cig and/or Vaping dev: No Substance use?: Yes Substance type: Methamphetamine, Marijuana, Other Additional substance use comme: COCAINE Substance frequency: Daily Alcohol Use?: Yes Alcohol Frequency: Rarely Immunizations Up To Date Tetanus Booster (TDap): Less than 5yrs First/Initial COVID19 Vaccinat: N/A Second COVID19 Vaccination James: N/A Third COVID19 Vaccination Date: N/A Seasonal Allergies Seasonal Allergies: Yes Past Medical History Surgeries: Yes ([place] teeth, ureteral stone removal) Renal Respiratory: Yes (COVID-19 infection) Currently Using CPAP: No Currently Using BIPAP: No Cardiac: No Neurological: No Reproductive Disorders: No Sexually Transmitted Disease: No HIV/AIDS: No Genitourinary: Yes Kidney Stones Gastrointestinal: No Gastroesophageal Reflux Musculoskeletal: No Endocrine: No HEENT: No Cancer: No Psychosocial: Yes Anxiety, Violent Behavior, Depression Integumentary: No Blood Disorders: No Family Medical History No Pertinent Family Hx Physical Exam Vital Signs Vital Signs - First Documented 04/01/22 22:18 Temp 36.8 Pulse 97 Resp 20 B/P (MAP) 120/72 (88) Pulse Ox 97 Capillary Refill : Height/Weight/BMI Height: 5'11.00" Weight: 170lbs. oz. 77.575850pz; 21.00 BMI Method:Estimated Progress/Results/Core Measures Results/Orders Lab Results Laboratory Tests Test 04/01/22 22:24 04/01/22 23:35 Range/Units White Blood Count 11.0 4.3-11.0 10^3/uL Red Blood Count 4.43 4.30-5.52 10^6/uL Hemoglobin 15.0 13.3-17.7 g/dL Hematocrit 43 40-54 % Mean Corpuscular Volume 96 80-99 fL Mean Corpuscular Hemoglobin 34 25-34 pg Mean Corpuscular Hemoglobin Concent 35 32-36 g/dL Red Cell Distribution Width 11.4 10.0-14.5 % Platelet Count 166 130-400 10^3/uL Mean Platelet Volume 11.8 9.0-12.2 fL Immature Granulocyte % (Auto) 0 % Neutrophils (%) (Auto) 78 H 42-75 % Lymphocytes (%) (Auto) 13 12-44 % Monocytes (%) (Auto) 8 0-12 % Eosinophils (%) (Auto) 1 0-10 % Basophils (%) (Auto) 0 0-10 % Neutrophils # (Auto) 8.6 H 1.8-7.8 10^3/uL Lymphocytes # (Auto) 1.4 1.0-4.0 10^3/uL Monocytes # (Auto) 0.8 0.0-1.0 10^3/uL Eosinophils # (Auto) 0.1 0.0-0.3 10^3/uL Basophils # (Auto) 0.0 0.0-0.1 10^3/uL Immature Granulocyte # (Auto) 0.0 0.0-0.1 10^3/uL Sodium Level 137 135-145 MMOL/L Potassium Level 3.5 L 3.6-5.0 MMOL/L Chloride Level 104 98-107 MMOL/L Carbon Dioxide Level 23 21-32 MMOL/L Anion Gap 10 5-14 MMOL/L Blood Urea Nitrogen 15 7-18 MG/DL Creatinine 1.01 0.60-1.30 MG/DL Estimat Glomerular Filtration Rate 104 BUN/Creatinine Ratio 15 Glucose Level 141 H 70-105 MG/DL Calcium Level 9.6 8.5-10.1 MG/DL Corrected Calcium 9.2 8.5-10.1 MG/DL Total Bilirubin 1.7 H 0.1-1.0 MG/DL Aspartate Amino Transf (AST/SGOT) 16 5-34 U/L Alanine Aminotransferase (ALT/SGPT) 18 0-55 U/L Alkaline Phosphatase 70 40-136 U/L Total Protein 7.5 6.4-8.2 GM/DL Albumin 4.5 3.2-4.5 GM/DL Lipase 59 8-78 U/L Urine Color YELLOW Urine Clarity CLEAR Urine pH 6.0 5-9 Urine Specific [place] >=1.030 1.016-1.022 Urine Protein TRACE H NEGATIVE Urine Glucose (UA) NEGATIVE NEGATIVE Urine Ketones TRACE H NEGATIVE Urine Nitrite NEGATIVE NEGATIVE Urine Bilirubin NEGATIVE NEGATIVE Urine Urobilinogen 1.0 < = 1.0 MG/DL Urine Leukocyte Esterase NEGATIVE NEGATIVE Urine RBC (Auto) NEGATIVE NEGATIVE Urine RBC NONE /HPF Urine WBC NONE /HPF Urine Crystals NONE /LPF Urine Bacteria TRACE /HPF Urine Casts NONE /LPF Urine Mucus LARGE H /LPF Urine Culture Indicated NO My Orders Orders - CEDRIC FOX MD Ed Iv/Invasive Line Start (04/01/22 22:44) Lactated Ringers (Lr 1000 Ml Iv Solution (04/01/22 22:45) Hyoscyamine Sl Tablet (Levsin Sl Tablet) (04/01/22 22:45) Ondansetron Injection (Zofran Injectio (04/01/22 22:45) Cbc With Automated Diff (04/01/22 22:45) Comprehensive Metabolic Panel (04/01/22 22:45) Lipase (04/01/22 22:45) Ua Culture If Indicated (04/01/22 22:45) Medications Given in ED Current Medications Medications Dose Ordered Sig/Glen Route Start Time Stop Time Status Last Admin Dose Admin Hyoscyamine Sulfate 0.25 mg ONCE ONCE PO 04/01/22 22:45 04/01/22 22:46 DC 04/01/22 22:50 0.25 MG Lactated Ringer's 1,000 ml @ 0 mls/hr Q0M ONCE IV 04/01/22 22:45 04/01/22 22:46 DC 04/01/22 22:50 0 MLS/HR Ondansetron HCl 4 mg ONCE ONCE IVP 04/01/22 22:45 04/01/22 22:46 DC 04/01/22 22:50 4 MG Vital Signs/I&O 04/01/22 22:18 Temp 36.8 Pulse 97 Resp 20 B/P (MAP) 120/72 (88) Pulse Ox 97 2 Blood Pressure Mean: 88 Departure Impression Primary Impression: Diarrhea Qualified Codes: R19.7 - Diarrhea, unspecified Additional Impressions: Lower abdominal pain Nausea Polysubstance abuse Disposition: HOME, SELF-CARE Condition: Improved Departure-Patient Inst. Decision time for Depature: 00:05 Referrals: NO,LOCAL PHYSICIAN (PCP/Family) Primary Care Physician Patient Instructions: Abdominal Pain, Adult ED, Diarrhea in Adolescents and Adults Add. Discharge Instructions: Start with a noncarbonated clear liquid diet and gradually advance your diet with small quantities of bland food as tolerated. Avoid dairy products, fatty foods, and greasy foods for at least 48 hours after your symptoms resolve. Use Zofran (ondansetron) as prescribed for nausea or vomiting. Use Levsin (hyoscyamine) as prescribed for abdominal cramping and diarrhea. Eliminate use of illicit substances such as marijuana, cocaine, methamphetamines, etc. Return to the ER if you have worsening symptoms despite following these instructions. All discharge instructions reviewed with patient and/or family. Voiced understanding. Scripts Hyoscyamine Sulfate (Levsin-Sl) 0.125 Mg Tab.subl 1-2 TAB SL Q4H PRN for CRAMPS, #10 TAB 0 Refills For abdominal cramps and/or diarrhea. Prov: CEDRIC FOX MD 04/02/22 Work/School Note: Work Release Form Date Seen in the Emergency Department: Apr 02, 2022 Return to Work: Apr 03, 2022 Restrictions: Return-No Fever (24hrs), Return-No Vomiting(24hrs) CEDRIC FOX MD Apr 02, 2022 00:08
[2022-04-02 00:19] VITALS: BP 105/66
== END 2022-04-02 00:22 | disposition home or self-care (01) ==
LOC: EDUNIT# 22:09 → ER 22:11
DX: F19.10 Other psychoactive substance abuse, uncomplicated (principal); R19.7 Diarrhea, unspecified; R11.0 Nausea; R10.11 Right upper quadrant pain; R10.12 Left upper quadrant pain; R10.31 Right lower quadrant pain; R10.32 Left lower quadrant pain; F17.210 Nicotine dependence, cigarettes, uncomplicated; Z86.16 Personal history of COVID-19; Z28.310 Unvaccinated for COVID-19
CPT/HCPCS: 36415; 80053; 81000; 83690; 85025

== ENCOUNTER 2022-04-19 16:35 | Emergency (ER) | payer MEDICAID ==
[~2022-04-19] VITALS: Ht 188 cm; Wt 79.4 kg
[~2022-04-19 16:35] MED LIST changes: +HYOS0.1283 SL
--- NOTE | 2022-04-19 17:10 | Diagnostic Imaging Report ---
Indication: Right 4th finger pain 3 views of the right hand show no fracture, dislocation or other acute abnormalities. IMPRESSION: Negative right hand Dictated by: Dictated on workstation # [id number]
--- NOTE | 2022-04-19 17:26 | ED Upper Extremity ---
General Chief Complaint: Upper Extremity Stated Complaint: R RING FINGER BROKEN/NUMBNESS Nursing Triage Note: PT AMBULATE TO ROOM FT1 WITH C/O RIGHT RING FINGER NUMBNESS. PT STATES HE SMASHED RIGHT RING FINGER X2 WEEKS AGO AND THOUGHT HE BROKE IT SO HE SPINTED FINGER HIMSELF. PT STATES YESTERDAY HE NOTICED THAT RIGHT RING FINGER WAS NUMB. Source: patient Exam Limitations: no limitations History of Present Illness Date Seen by Provider: Apr 19, 2022 Time Seen by Provider: 17:24 Initial Comments To ER with right ring finger numbness. Normal range of motion. This started about 1 week ago when he smashed it while at work. Had a puncture wound to the dorsal ulnar side of the DIP joint. That has healed nicely. No fevers chills or redness but he has loss of sensation to the pad of that finger distally. Onset: just prior to arrival Severity: moderate Pain/Injury Location: right 4th finger Method of Injury: direct blow Modifying Factors: Worse With Movement Allergies and Home Medications Allergies Coded Allergies: fentanyl (Verified Allergy, Unknown, LIPS SWELLED, 07/26/20) Patient Home Medication List Home Medication List Reviewed: Yes Azithromycin (Azithromycin) 250 Mg Tablet, 250 MG PO DAILY Prescribed by: CEDRIC HODGSON on 12/18/20 0443 Hyoscyamine Sulfate (Levsin-Sl) 0.125 Mg Tab.subl, 1-2 TAB SL Q4H PRN for CRAMPS Prescribed by: CEDRIC HODGSON on 04/02/22 0007 Nitrofurantoin Monohyd/M-Cryst (Macrobid 100 mg Capsule) 100 Mg Capsule, 1 TAB PO BID WITH MEALS Prescribed by: SANTANA ONEAL on 07/26/20 0954 Ondansetron (Ondansetron Odt) 4 Mg Tab.rapdis, 4 MG PO Q6H PRN for NAUSEA/VOMITING Prescribed by: SOPHIE PHAN on 02/06/21 2136 Oxycodone HCl/Acetaminophen (Percocet 5-325 mg Tablet) 1 Each Tablet, 1 TAB PO Q4H Prescribed by: BLUE BAXTER on 07/27/20 1308 Tamsulosin HCl (Flomax) 0.4 Mg Cap, 0.4 MG PO DAILY Prescribed by: SANTANA ONEAL on 07/26/20 0954 Tramadol HCl (Tramadol HCl) 50 Mg Tablet, 50 MG PO Q4H PRN for PAIN-MODERATE (5- 7) Prescribed by: SANTANA ONEAL on 07/26/20 0954 Review of Systems Constitutional: see HPI EENTM: see HPI Respiratory: no symptoms reported Cardiovascular: no symptoms reported Genitourinary: no symptoms reported Musculoskeletal: see HPI Skin: no symptoms reported Psychiatric/Neurological: No Symptoms Reported Past Wqkekib-Mzeicu-Kmtceh Hx Patient Social History Tobacco Use?: Yes Tobacco type used: Cigarettes Smoking Status: Current Everyday Smoker Smokeless Tobacco Frequency: Never a User Use of E-Cig and/or Vaping dev: No Use of E-Cig and/or Vaping Ramo: Never a User Substance use?: Yes Substance type: Marijuana Substance frequency: Daily Alcohol Use?: No Pt feels they are or have been: No Immunizations Up To Date Tetanus Booster (TDap): Less than 5yrs First/Initial COVID19 Vaccinat: N/A Second COVID19 Vaccination James: N/A Third COVID19 Vaccination Date: N/A Seasonal Allergies Seasonal Allergies: Yes Past Medical History Surgeries: Yes ([place] teeth, ureteral stone removal) Renal Respiratory: Yes (COVID-19 infection) Currently Using CPAP: No Currently Using BIPAP: No Cardiac: No Neurological: No Reproductive Disorders: No Sexually Transmitted Disease: No HIV/AIDS: No Genitourinary: Yes Kidney Stones Gastrointestinal: Yes Gastroesophageal Reflux Musculoskeletal: No Endocrine: No HEENT: No Cancer: No Psychosocial: Yes (polysubstance abuse) Anxiety, Violent Behavior, Depression Integumentary: No Blood Disorders: No Family Medical History No Pertinent Family Hx Physical Exam Vital Signs Vital Signs - First Documented 04/19/22 16:43 Temp 37.2 Pulse 114 Resp 19 B/P (MAP) 123/88 (100) O2 Delivery Room Air Capillary Refill : Less Than 3 Seconds Height, Weight, BMI Height: 5'11.00" Weight: 170lbs. oz. 77.533819dw; 22.00 BMI Method:Estimated General Appearance: WD/WN, no apparent distress HEENT: PERRL/EOMI, normal ENT inspection Respiratory: no respiratory distress, no accessory muscle use Shoulder: normal inspection, non-tender Elbow/Forearm: normal inspection, non-tender Wrist: Yes normal inspection, Yes non-tender Hand: normal inspection, non-tender Neurologic/Tendon: normal motor functions, normal tendon functions Neurologic/Psychiatric: alert, normal mood/affect, oriented x 3 Skin: normal color, warm/dry Progress/Results/Core Measures Results/Orders My Orders Orders - BLUE BAXTER APRN Hand, Right, 3 Views (04/19/22 16:54) Vital Signs/I&O 04/19/22 16:43 Temp 37.2 Pulse 114 Resp 19 B/P (MAP) 123/88 (100) O2 Delivery Room Air Blood Pressure Mean: 100 Departure Impression Primary Impression: Digital nerve injury Disposition: HOME, SELF-CARE Condition: Stable Departure-Patient Inst. Decision time for Depature: 17:26 Referrals: NO,LOCAL PHYSICIAN (PCP/Family) Primary Care Physician Patient Instructions: NO INSTRUCTIONS GIVEN Add. Discharge Instructions: All discharge instructions reviewed with patient and/or family. Voiced understanding. BLUE BAXTER APRN Apr 19, 2022 17:26
[2022-04-19 17:32] VITALS: BP 134/75
== END 2022-04-19 17:32 | disposition home or self-care (01) ==
LOC: EDUNIT# 16:35 → ER 16:38
DX: S64.494A Injury of digital nerve of right ring finger, initial encounter (principal); F17.210 Nicotine dependence, cigarettes, uncomplicated; Z86.16 Personal history of COVID-19; Z28.310 Unvaccinated for COVID-19; W23.1XXA Caught, crushed, jammed, or pinched between stationary objects, initial encounter; Y92.59 Other trade areas as the place of occurrence of the external cause; Y99.0 Civilian activity done for income or pay
CPT/HCPCS: 73130

== ENCOUNTER 2022-06-29 15:51 | Emergency (ER) | payer MEDICAID | END 2022-06-29 16:05 | disposition left against medical advice (07) | LOC: EDUNIT# 15:51 → ER 15:52 | DX: R45.851 Suicidal ideations (principal) ==

== ENCOUNTER 2022-09-12 11:50 | Emergency (ER) | payer MEDICAID ==
[~2022-09-12] VITALS: Ht 187 cm; Wt 70.0 kg
[2022-09-12] MEDS ORDERED: morphine INJ 10 MG/ML 1ML (SYR OR VIAL) IVP STA ×2 (12:22→13:40)
--- NOTE | 2022-09-12 12:28 | ED Abdominal Pain ---
General Chief Complaint: Abdominal/GI Problems Stated Complaint: ABD PAIN Nursing Triage Note: PT CO OF ABD PAIN, AND SEVERE PAIN IN "NUTS", PAIN ON R SIDE UPON AWAKENING.PT STATES HAS SWEATING AND HAS NOT URINATED TODAY. STATES HX OF KIDNEY STONE APPROX 1 YR AGO Source of Information: Patient Exam Limitations: Intoxication History of Present Illness Date Seen by Provider: Sep 12, 2022 Time Seen by Provider: 12:16 Initial Comments Patient is a 27-year-old male who presents to the emergency room, screaming, yelling complaining about pain in his "nuts". Patient states he woke up approximately an hour prior to arrival with sudden onset of pain in his groin. He states he believes he has a kidney stone. In the midst of him writhing and screaming he tells me he had a kidney stone approximately 1 year ago that requi red lithotripsy. He states he has been able to dribble a little bit of urine. He is not sure if he has had blood. He states that he has not taken any medication for the pain. He states this pain is similar to previous kidney stone. Patient states that he has done some "amphetamine 17 hours ago". Exceedingly difficult to get a history and perform a physical examination on this patient due to his behavior. Timing/Duration: 1 Hour Severity/Quality: Severe, Sharp, Stabbing, Throbbing Location: Other (groin and lower abdomen) Activities at Onset: Sleeping Allergies and Home Medications Allergies Coded Allergies: fentanyl (Verified Allergy, Unknown, LIPS SWELLED, 07/26/20) Patient Home Medication List Home Medication List Reviewed: Yes Azithromycin (Azithromycin) 250 Mg Tablet, 250 MG PO DAILY Prescribed by: CEDRIC HODGSON on 12/18/20 0443 Hydrocodone/Acetaminophen (Hydrocodone-Acetamin 5-325 mg) 5 Mg-325 Mg Tablet, 1 TAB PO Q6H PRN for PAIN-MODERATE (5-7) Prescribed by: NILSA KING on 09/12/22 1314 Hyoscyamine Sulfate (Levsin-Sl) 0.125 Mg Tab.subl, 1-2 TAB SL Q4H PRN for CRAMPS Prescribed by: CEDRIC HODGSON on 04/02/22 0007 Ketorolac Tromethamine (Ketorolac Tromethamine) 10 Mg Tablet, 10 MG PO TID PRN for pain Prescribed by: NILSA KING on 09/12/22 1312 Nitrofurantoin Monohyd/M-Cryst (Macrobid 100 mg Capsule) 100 Mg Capsule, 1 TAB PO BID WITH MEALS Prescribed by: SANTANA ONEAL on 07/26/20 0954 Ondansetron (Ondansetron Odt) 4 Mg Tab.rapdis, 4 MG PO Q6H PRN for NAUSEA/VOMITING Prescribed by: SOPHIE PHAN on 02/06/21 213 Oxycodone HCl/Acetaminophen (Percocet 5-325 mg Tablet) 1 Each Tablet, 1 TAB PO Q4H Prescribed by: BLUE BAXTER on 07/27/20 1308 Tamsulosin HCl (Flomax) 0.4 Mg Cap, 0.4 MG PO DAILY Prescribed by: SANTANA ONEAL on 07/26/20 0954 Tamsulosin HCl (Flomax) 0.4 Mg Cap, 0.4 MG PO HS Prescribed by: NILSA KING on 09/12/22 1312 Tramadol HCl (Tramadol HCl) 50 Mg Tablet, 50 MG PO Q4H PRN for PAIN-MODERATE (5- 7) Prescribed by: SANTANA ONEAL on 07/26/20 0954 Review of Systems Review of Systems Constitutional: see HPI Gastrointestinal: Abdominal Pain Genitourinary: Pain, Urgency Past Rpjpimr-Grbsun-Mukggh Hx Patient Social History Tobacco Use?: Yes Smoking Status: Current Everyday Smoker Substance use?: No Alcohol Use?: No Pt feels they are or have been: No Immunizations Up To Date Tetanus Booster (TDap): Less than 5yrs Influenza Vaccine Up-to-Date: No; Not Current First/Initial COVID19 Vaccinat: N/A Second COVID19 Vaccination James: N/A Third COVID19 Vaccination Date: N/A Seasonal Allergies Seasonal Allergies: Yes Past Medical History Surgery/Hospitalization HX: KIDNEY STONE Surgeries: Yes ([place] teeth, ureteral stone removal) Renal Respiratory: Yes (COVID-19 infection) Currently Using CPAP: No Currently Using BIPAP: No Cardiac: No Neurological: No Reproductive Disorders: No Sexually Transmitted Disease: No HIV/AIDS: No Genitourinary: Yes Kidney Stones Gastrointestinal: Yes Gastroesophageal Reflux Musculoskeletal: No Endocrine: No HEENT: No Cancer: No Psychosocial: Yes (polysubstance abuse) Anxiety, Violent Behavior, Depression Integumentary: No Blood Disorders: No Family Medical History No Pertinent Family Hx Physical Exam Vital Signs Vital Signs - First Documented 09/12/22 09/12/22 12:00 13:56 Temp 36.6 Pulse 74 Resp 19 B/P (MAP) 120/79 (93) Pulse Ox 99 O2 Delivery Room Air Capillary Refill : Less Than 3 Seconds Height/Weight/BMI Height: 5'11.00" Weight: 170lbs. oz. 77.979938tk; 20.00 BMI Method:Estimated General Appearance: severe distress Neck: full range of motion Respiratory: lungs clear, normal breath sounds, no respiratory distress, no accessory muscle use, other (tachypneic) Cardiovascular: regular rate, rhythm, tachycardia Gastrointestinal: soft, tenderness (suprapubic tenderness) Genital/Rectal: other (circumcised; no discharge or lesions; bilateral testicles no masses no reproducible testicular tenderness or lesions) Extremities: normal range of motion Neurologic/Psychiatric: alert, other (in extremis; writhing wround, screaming and yelling) Skin: normal color, warm/dry Progress/Results/Core Measures Results/Orders Lab Results Laboratory Tests Test 09/12/22 12:06 09/12/22 12:54 Range/Units White Blood Count 7.7 4.3-11.0 10^3/uL Red Blood Count 4.94 4.30-5.52 10^6/uL Hemoglobin 16.5 13.3-17.7 g/dL Hematocrit 47 40-54 % Mean Corpuscular Volume 96 80-99 fL Mean Corpuscular Hemoglobin 33 25-34 pg Mean Corpuscular Hemoglobin Concent 35 32-36 g/dL Red Cell Distribution Width 11.3 10.0-14.5 % Platelet Count 232 130-400 10^3/uL Mean Platelet Volume 11.7 9.0-12.2 fL Immature Granulocyte % (Auto) 0 % Neutrophils (%) (Auto) 38 L 42-75 % Lymphocytes (%) (Auto) 48 H 12-44 % Monocytes (%) (Auto) 9 0-12 % Eosinophils (%) (Auto) 3 0-10 % Basophils (%) (Auto) 1 0-10 % Neutrophils # (Auto) 3.0 1.8-7.8 10^3/uL Lymphocytes # (Auto) 3.7 1.0-4.0 10^3/uL Monocytes # (Auto) 0.7 0.0-1.0 10^3/uL Eosinophils # (Auto) 0.2 0.0-0.3 10^3/uL Basophils # (Auto) 0.1 0.0-0.1 10^3/uL Immature Granulocyte # (Auto) 0.0 0.0-0.1 10^3/uL Sodium Level 142 135-145 MMOL/L Potassium Level 4.4 3.6-5.0 MMOL/L Chloride Level 107 98-107 MMOL/L Carbon Dioxide Level 24 21-32 MMOL/L Anion Gap 11 5-14 MMOL/L Blood Urea Nitrogen 13 7-18 MG/DL Creatinine 1.03 0.60-1.30 MG/DL Estimat Glomerular Filtration Rate 101 BUN/Creatinine Ratio 13 Glucose Level 122 H 70-105 MG/DL Calcium Level 9.3 8.5-10.1 MG/DL Urine Color ORANGE Urine Clarity CLOUDY Urine pH 6.0 5-9 Urine Specific [place] 1.025 H 1.016-1.022 Urine Protein 1+ H NEGATIVE Urine Glucose (UA) NEGATIVE NEGATIVE Urine Ketones NEGATIVE NEGATIVE Urine Nitrite NEGATIVE NEGATIVE Urine Bilirubin NEGATIVE NEGATIVE Urine Urobilinogen 1.0 < = 1.0 MG/DL Urine Leukocyte Esterase NEGATIVE NEGATIVE Urine RBC (Auto) 3+ H NEGATIVE Urine RBC TNTC H /HPF Urine WBC 2-5 /HPF Urine Squamous Epithelial Cells RARE /HPF Urine Crystals NONE /LPF Urine Bacteria FEW H /HPF Urine Casts NONE /LPF Urine Mucus SMALL H /LPF Urine Culture Indicated YES Urine Opiates Screen NEGATIVE NEGATIVE Urine Oxycodone Screen NEGATIVE NEGATIVE Urine Methadone Screen NEGATIVE NEGATIVE Urine Propoxyphene Screen NEGATIVE NEGATIVE Urine Barbiturates Screen NEGATIVE NEGATIVE Ur Tricyclic Antidepressants Screen NEGATIVE NEGATIVE Urine Phencyclidine Screen NEGATIVE NEGATIVE Urine Amphetamines Screen NEGATIVE NEGATIVE Urine Methamphetamines Screen NEGATIVE NEGATIVE Urine Benzodiazepines Screen NEGATIVE NEGATIVE Urine Cocaine Screen NEGATIVE NEGATIVE Urine Cannabinoids Screen POSITIVE H NEGATIVE Micro Results Microbiology 09/12/22 Urine Culture - Final, Complete NO GROWTH My Orders Orders - NILSA KING MD Ed Iv/Invasive Line Start (09/12/22 12:20) Cbc With Automated Diff (09/12/22 12:20) Basic Metabolic Panel (09/12/22 12:20) Ua Culture If Indicated (09/12/22 12:20) Drug Screen Stat (Urine) (09/12/22 12:20) Ns Iv 1000 Ml (Sodium Chloride 0.9%) (09/12/22 12:30) Ketorolac Injection (Toradol Injection) (09/12/22 12:30) Glycopyrrolate Injection (Robinul Inject (09/12/22 12:30) Morphine Injection (Morphine Injection (09/12/22 12:22) Abdomen/Kub 1view (09/12/22 12:30) Ct Abd/Pelvis Wo(Kidney Stone) (09/12/22 12:30) Urine Culture (09/12/22 12:54) Morphine Injection (Morphine Injection (09/12/22 13:40) Ondansetron Injection (Zofran Injectio (09/12/22 13:45) Medications Given in ED Vital Signs/I&O 09/12/22 09/12/22 12:00 13:56 Temp 36.6 36.6 Pulse 74 65 Resp 19 B/P (MAP) 120/79 (93) 134/74 Pulse Ox 99 96 O2 Delivery Room Air Blood Pressure Mean: 93 Progress Progress Note : Time: 13:41 Progress Note Patient seen and evaluated by me, 27-year-old with severe lower abdominal, groin and testicular pain. Evaluation today includes limited physical exam, basic laboratory studies including UA, CBC chemistry. KUB and renal stone protocol CT. His CBC and chemistry are within normal limits. He does have hematuria on urinalysis, no evidence of urinary tract infection. KUB does not reveal obvious ureteral stone on either side. CT renal stone protocol shows a 3.7 mm distal right ureteral stone with some periureteral stranding and mild hydro ureter. Patient has had previous kidney stone with lithotripsy. He was treated in the emergency department with IV fluids, normal saline, Toradol, Robinul and morphine. He did experience some nausea was given 8 mg of Zofran IV. He did achieve moderate relief of his pain. I counseled the patient on his drug abuse and tolerance for pain medications. I advised him we would not be able to make him completely pain-free. I advised him that we would be able to give him prescriptions for pain medications to use on an outpatient basis. Gave him return precautions. Advised that he follow-up with a urologist, there are none local to the [place] area so he will have to look elsewhere and suggested [place]. No clinical or objective findings concerning for acute testicular torsion as the exam is not concerning for this, no concerning findings for acute incarcerated abdominal hernia or inguinal hernia. He declines nausea medications for home but will be sent with Toradol, Flomax and hydrocodone. Patient verbalized understanding of the discharge instruction. All questions are sought and answered. Diagnostic Imaging Diagonstic Imaging: CT Comments [facility] [place], [place] NAME: [facility] REC#: [id number] PT STATUS: REG ER : 1995 PHYSICIAN: NILSA KING MD ADMIT DATE: 09/12/22/ER Draft Date of Exam:09/12/22 CT ABD/PELVIS WO(KIDNEY STONE) PROCEDURE: CT urinary tract, rule out kidney stone. TECHNIQUE: Multiple contiguous axial images were obtained through the abdomen and pelvis without the use of intravenous contrast. Auto Exposure Controls were utilized during the CT exam to meet ALARA standards for radiation dose reduction. DATE: September 12, 2022. COMPARISON: Abdominal radiograph August 09, 2020. CT abdomen and pelvis July 07, 2020. INDICATION: 27-year-old male, left flank and testicular pain. FINDINGS: There are limitations for evaluation of the abdominal organs, neoplastic processes, abscess, and limited evaluation of the vasculature relating to the lack of intravenous contrast. The visualized portions of the lung bases are clear. The heart is not enlarged. There is no pericardial effusion. The liver is unremarkable in size and contour. The gallbladder is unremarkable. There is no intrahepatic or extrahepatic bile duct dilation. The main pancreatic duct is not grossly dilated. Noncontrast assessment of the pancreas is unremarkable. The spleen is normal in size. The adrenal glands are unremarkable. There is a 4 mm nonobstructing left renal stone on axial image 63. There is a calcification on axial image 158 which measures 3.7 mm in size which is new since the prior CT and most likely is a stone in the right distal ureter. There is mild prominence of the right ureter proximal to the stone and mild right hydronephrosis. The urinary bladder is underdistended and not well evaluated. The intestinal tract is not distended. The appendix is unremarkable. There is no free intraperitoneal air. There is no drainable fluid collection. There is no free fluid in the abdomen or pelvis. There is no identified abnormally enlarged lymph node in the abdomen or pelvis which meets CT size criteria for adenopathy. There are pelvic calcifications, compatible with phleboliths. There is no identified acute bony abnormality. IMPRESSION: 1. There is a 3.7 mm calcification, most likely relating to a stone, in the right distal ureter with mild right hydronephrosis. 2. There is a 4 mm nonobstructing left renal stone. No identified left ureteral stone or hydronephrosis. Dictated on workstation # [id number] Dict: 09/12/22 1254 Trans: 09/12/22 1301 [id number] Interpreted by: LATOYA CORBIN MD Electronically signed by: Karengoyanira Imaging: Xray Comments [facility]. [place], [place] NAME: CARMEN [facility] REC#: [id number] PT STATUS: REG ER : 1995 PHYSICIAN: NILSA KING MD ADMIT DATE: 09/12/22/ER Signed Date of Exam:09/12/22 ABDOMEN/KUB 1VIEW INDICATION: Flank pain. EXAMINATION: KUB at 12:59 p.m. FINDINGS: Bowel gas pattern is normal. There is large amount of stool in the descending colon. There are no pathologic masses or calcifications. IMPRESSION: Moderate fecal stasis. Dictated by: Dictated on workstation # [id number] Dict: 09/12/22 1255 Trans: 09/12/22 1258 [id number] Interpreted by: MOISE VARGAS MD Electronically signed by: MOISE VARGAS MD 09/12/22 1258 Departure Impression Primary Impression: Right ureteral calculus Disposition: HOME, SELF-CARE Condition: Improved Departure-Patient Inst. Decision time for Depature: 13:09 Referrals: [facility] [place] NO,LOCAL PHYSICIAN (PCP) Primary Care Physician Add. Discharge Instructions: Drink lots of fluids to stay well-hydrated over the next 24 to 48 hours to help you pass your kidney stone. Use the urine strainer that we have provided to strain your urine so that you know when you have passed it. Take the hydrocodone 1 tablet every 6 hours as needed for severe pain, otherwise I have given you a prescription for Toradol (ketoralac) which treats kidney stone pain very well. You can take this up to 3 times a day for the next 2 days. After this take ibuprofen 3 tablets which is 600 mg every 6 hours with food as needed. I have given you a prescription for Flomax which increases urine flow, take this nightly for the next week. If you develop a fever, worsening pain, vomiting please come back to the emergency room for reevaluation. You should follow-up with the urologist, this is a doctor that takes care of patients with kidney stones. You may need to seek care in [place] or another location as there is not a urologist in [place]. Scripts Ketorolac Tromethamine (Ketorolac Tromethamine) 10 Mg Tablet 10 MG PO TID PRN for pain for 2 Days, #6 TAB Prov: NILSA KING MD 09/12/22 Tamsulosin HCl (Flomax) 0.4 Mg Cap 0.4 MG PO HS for 10 Days, #10 CAP Prov: NILSA KING MD 09/12/22 Hydrocodone/Acetaminophen (Hydrocodone-Acetamin 5-325 mg) 5 Mg-325 Mg Tablet 1 TAB PO Q6H PRN for PAIN-MODERATE (5-7), #10 TAB Prov: NILSA KING MD 09/12/22 Copy Copies To 1: ROMÁN WARD KATHRYN M MD Sep 12, 2022 12:28
[2022-09-12] MEDS ORDERED: GLYCOPYRROLATE 0.2 MG/ML (ROBINUL) 2 ML VIAL IV ONE (12:30)
[2022-09-12] MEDS ORDERED: KETOROLAC 30 MG/ML VIAL IVP ONE (12:30)
[2022-09-12] MEDS ORDERED: NS IV 1000 ML 1,000 ML IV SCH (12:30)
[2022-09-12 12:32] LABS: BASOPHILS # (AUTO) 0.1 10^3/uL (0.0-0.1); BASOPHILS % (AUTO) 1 % (0-10); EOSINOPHILS # (AUTO) 0.2 10^3/uL (0.0-0.3); EOSINOPHILS % (AUTO) 3 % (0-10); HEMATOCRIT 47 % (40-54); HEMOGLOBIN 16.5 g/dL (13.3-17.7); LYMPHOCYTES # (AUTO) 3.7 10^3/uL (1.0-4.0); LYMPHOCYTES % (AUTO) 48 % (12-44); MEAN CORPUSCULAR HEMOGLOBIN 33 pg (25-34); MEAN CORPUSCULAR HGB CONC 35 g/dL (32-36); MEAN CORPUSCULAR VOLUME 96 fL (80-99); MEAN PLATELET VOLUME 11.7 fL (9.0-12.2); MONOCYTES # (AUTO) 0.7 10^3/uL (0.0-1.0); MONOCYTES % (AUTO) 9 % (0-12); NEUTROPHILS % (AUTO) 38 % (42-75); PLATELET COUNT 232 10^3/uL (130-400); WHITE BLOOD COUNT 7.7 10^3/uL (4.3-11.0)
[2022-09-12 12:47] LABS: CALCIUM 9.3 MG/DL (8.5-10.1); CREATININE SERUM 1.03 MG/DL (0.60-1.30); POTASSIUM 4.4 MMOL/L (3.6-5.0)
--- NOTE | 2022-09-12 12:58 | Diagnostic Imaging Report ---
INDICATION: Flank pain. EXAMINATION: KUB at 12:59 p.m. FINDINGS: Bowel gas pattern is normal. There is large amount of stool in the descending colon. There are no pathologic masses or calcifications. IMPRESSION: Moderate fecal stasis. Dictated by: Dictated on workstation # [id number]
[2022-09-12 12:59] LABS: BILIRUBIN,URINE NEGATIVE (NEGATIVE); CLARITY,URINE CLOUDY; COLOR,URINE ORANGE; GLUCOSE, URINE (UA) NEGATIVE (NEGATIVE); KETONES,URINE NEGATIVE (NEGATIVE); LEUKOCYTE ESTERASE ,URINE NEGATIVE (NEGATIVE); NITRITE,URINE NEGATIVE (NEGATIVE); PROTEIN,URINE 1+ (NEGATIVE)
--- NOTE | 2022-09-12 13:02 | Diagnostic Imaging Report ---
PROCEDURE: CT urinary tract, rule out kidney stone. TECHNIQUE: Multiple contiguous axial images were obtained through the abdomen and pelvis without the use of intravenous contrast. Auto Exposure Controls were utilized during the CT exam to meet ALARA standards for radiation dose reduction. DATE: September 12, 2022. COMPARISON: Abdominal radiograph August 09, 2020. CT abdomen and pelvis July 07, 2020. INDICATION: 27-year-old male, left flank and testicular pain. FINDINGS: There are limitations for evaluation of the abdominal organs, neoplastic processes, abscess, and limited evaluation of the vasculature relating to the lack of intravenous contrast. The visualized portions of the lung bases are clear. The heart is not enlarged. There is no pericardial effusion. The liver is unremarkable in size and contour. The gallbladder is unremarkable. There is no intrahepatic or extrahepatic bile duct dilation. The main pancreatic duct is not grossly dilated. Noncontrast assessment of the pancreas is unremarkable. The spleen is normal in size. The adrenal glands are unremarkable. There is a 4 mm nonobstructing left renal stone on axial image 63. There is a calcification on axial image 158 which measures 3.7 mm in size which is new since the prior CT and most likely is a stone in the right distal ureter. There is mild prominence of the right ureter proximal to the stone and mild right hydronephrosis. The urinary bladder is underdistended and not well evaluated. The intestinal tract is not distended. The appendix is unremarkable. There is no free intraperitoneal air. There is no drainable fluid collection. There is no free fluid in the abdomen or pelvis. There is no identified abnormally enlarged lymph node in the abdomen or pelvis which meets CT size criteria for adenopathy. There are pelvic calcifications, compatible with phleboliths. There is no identified acute bony abnormality. IMPRESSION: 1. There is a 3.7 mm calcification, most likely relating to a stone, in the right distal ureter with mild right hydronephrosis. 2. There is a 4 mm nonobstructing left renal stone. No identified left ureteral stone or hydronephrosis. Dictated by: Dictated on workstation # [id number]
[2022-09-12 13:12] LABS: AMPHETAMINE SCREEN, URINE NEGATIVE (NEGATIVE); BARBITURATE SCREEN URINE NEGATIVE (NEGATIVE); BENZODIAZEPINES SCREEN URINE NEGATIVE (NEGATIVE); CANNABINOID SCREEN, URINE POSITIVE (NEGATIVE); COCAINE SCREEN URINE NEGATIVE (NEGATIVE); METHADONE STAT NEGATIVE (NEGATIVE); OPIATE SCREEN URINE NEGATIVE (NEGATIVE); OXYCODONE STAT NEGATIVE (NEGATIVE); PROPOXYPHENE STAT NEGATIVE (NEGATIVE); TRICYCLIC ANTIDEPRESSANTS SCRE NEGATIVE (NEGATIVE)
[2022-09-12] MEDS ORDERED: TMSL.4C PO (13:12)
[2022-09-12] MEDS ORDERED: ACHD5005 PO (13:12)
[2022-09-12] MEDS ORDERED: KETO10TA PO (13:12)
[2022-09-12 13:18] LABS: BACTERIA,URINE FEW /HPF; RBC,URINE TNTC /HPF; SQUAMOUS EPITHELIAL CELL,UR RARE /HPF
[2022-09-12] MEDS ORDERED: ONDANSETRON 4 MG/2 ML (SDV) Z0FRAN IVP ONE (13:45)
[2022-09-12 13:56] VITALS: BP 134/74
== END 2022-09-12 13:58 | disposition home or self-care (01) ==
LOC: EDUNIT# 11:50 → ER 11:52
DX: N13.2 Hydronephrosis with renal and ureteral calculous obstruction (principal); F17.200 Nicotine dependence, unspecified, uncomplicated
CPT/HCPCS: 36415; 74018; 74176; 80048; 80306; 81000; 85025; 87088